=== PATIENT | female | born 1985 | race Caucasian/White ===

== ENCOUNTER 2021-06-19 07:08 | Outpatient (REF) | payer OTHER, SELFPAY ==
[2021-06-19 11:35] LABS: Appearance Urine CLEAR; Color Urine YELLOW; Glucose Urine UA NEG (NEG); Leukocyte Esterase Urine NEG (NEG); Nitrite Urine NEG (NEG); Specific Gravity - Urine 1.015 (1.005-1.025); Urine Blood NEG (NEG); Urine Ketones NEG (NEG); Urine Protein NEG (NEG-TRACE)
[2021-06-19 11:54] LABS: Alanine Aminotransferase 24 U/L (0-31); Albumin Level 4.1 g/dL (3.5-5.0); Alkaline Phosphatase 60 U/L (39-117); Anion Gap 12 (12-20); Aspartate Amino Transferase 17 U/L (5-31); Bilirubin Total 0.7 mg/dL (0.0-1.0); Blood Urea Nitrogen 9 mg/dL (9-16); Calcium 8.9 mg/dL (8.4-10.2); Carbon Dioxide 24 mmol/L (22-29); Chloride 106 mmol/L (96-108); Cholesterol 201 mg/dL; Estimated Glomerular Filt Rate > 60; Glucose Fasting 99 mg/dL (60-99); HDL Cholesterol 46 mg/dL; Hematocrit 40.7 % (37.0-47.0); Hemoglobin 13.8 g/dl (12.0-16.0); LDL Cholesterol Calculated 135 mg/dl; Mean Corpuscular HGB Conc 33.9 g/dl (31.0-35.0); Mean Corpuscular Volume 94.4 fL (80.0-98.0); Mean Platelet Volume 10.8 fL (9.4-12.3); Platelet Count 233 X10*3/uL (160-400); Potassium 4.7 mmol/L (3.3-5.1); Red Blood Count 4.31 X10*6/uL (4.20-5.50); Red Cell Distribution Width 11.8 % (11.0-16.0); Sodium 137 mmol/L (135-145); Total Protein 6.6 g/dL (6.5-8.0); Triglycerides 101 mg/dL; White Blood Count 10.9 X10*3/uL (4.8-10.8)
[2021-06-19 12:17] LABS: TSH reflex Free T4 0.95 uIU/mL (0.32-4.0)
== END 2021-06-19 07:09 | disposition home or self-care (01) ==
LOC: HO.WFDLDS 07:08
PROVIDERS: PCP Hospitalist; Visit Provider Hospitalist
DX: Z00.00 Encounter for general adult medical examination without abnormal findings (principal)
CPT/HCPCS: 36415; 80053; 80061; 81003; 84443; 85027

== ENCOUNTER 2022-11-25 14:37 | Outpatient (AMB) | payer OTHER, SELFPAY ==
--- NOTE | 2022-11-25 14:47 | A.OFFVIS_ITS ---
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 htn/afb Intake Note: NPV w/ EKG Commissioning Manager Required: No Accompanied by: Self / Same As Patient Allergies No Known Allergies Allergy (Verified 11/25/22 14:47) Medication List - Last Reconciled 11/25/22 by Thomas Ardon MD diltiazem HCl ER 120 mg PO DAILY HPI HPI Comments History of Present Illness Details Mckenna is here for consultation regarding atrial fibrillation. In June 2021, patient had been on vacation and it seems that she had alcohol consumption during that time. When she returned back from vacation, she states she went into atrial fibrillation. That led to hospitalization at [facility]. Initially, IV Cardizem was tried but subsequently, it seems that due to lack of response to medications she underwent synchronized cardioversion. Then put on short-term anticoagulation for a few weeks and nothing since that time. She has seen [facility] after that but would like to switch. Overall, she states that she is feeling fine. No cardiac symptoms at all. No other cardiac history in the past apart from a single episode of atrial fibrillation. She states she does have high blood pressure and diltiazem is for both atrial fibri llation as well as high blood pressure. Otherwise, there is a history of we can alcohol consumption on Fridays or Saturdays when she drinks about 5 beers or so. No major cardiac issues in family. Mother because of pulmonary embolism that apparently happened after back surgery. She was in her 60s. [facility] Medical History (Updated 11/25/22 @ 15:11 by Thomas Ardon MD) PAF (paroxysmal atrial fibrillation) Hypertension Family History (Updated 11/25/22 @ 15:10 by Thomas Ardon MD) Mother Hypertension Pulmonary embolism Father Hypertension Social History Household Members: Spouse Both parents involved: No Caregiver staying overnight: No Housing: House Alcohol intake: current Patient Tobacco Use Status: Never used Tobacco e-Cigarette/Vaping Use: Never Used Second Hand Smoke Exposure: No Substance Use Type: Marijuana service: No Current occupational status: employed Current occupation: Teacher at [employer] Cognitive needs: No Hearing needs: No Vision needs: No Review of Systems Const Denies chills, Denies daytime sleepiness, Denies fatigue, Denies fever(s), Denies frequent falls, Denies night sweats, Denies snoring, Denies weakness, Denies weight gain and Denies weight loss Eyes Denies loss of vision ENT Denies dizziness and Denies hearing loss Card Denies chest pain, Denies chest pain with activity, Denies syncope, Denies rapid heart rate, Denies edema, Denies claudication, Denies leg edema, Denies lightheadedness, Denies palpitations, Denies dyspnea, Denies dyspnea on exertion and Denies orthopnea Resp Denies cough, Denies excessive phlegm production, Denies dyspnea, Denies dyspnea on exertion, Denies snoring and Denies wheezing GI Denies abdominal pain, Denies hematochezia, Denies change in bowel habits, Denies change in stool character, Denies heartburn, Denies nausea and Denies vomiting Denies hematuria, Denies urinary frequency and Denies dysuria Musc Denies arthralgias, Denies muscle weakness, Denies numbness and Denies tingling Skin/Breast Denies nail changes and Denies rash Neuro Denies Abnormal speech present, Denies dizziness, Denies syncope, Denies frequent falls, Denies loss of vision, Denies memory loss, Denies numbness, Denies tingling and Denies weakness Psych Denies depression and Denies memory loss Endo Denies fatigue and Denies palpitations Aller/Immun Denies wheezing Physical Exam Vital Signs: Last Vital Signs BP 140/88 H 11/25/22 14:48 BMI result Body Mass Index 35.7 Const General: comfortable and no acute distress Orientation/consciousness: patient oriented x3 HEENT Other: Unremarkable Head: Yes normal to inspection Neck Neck: Yes normal visual inspection Chest Chest palpation & inspection: normal inspection of the chest Resp Auscultation: clear to auscultation bilaterally Cardio Palpation: normal PMI Heart sounds: S1 normal heart sound present, S2 normal heart sound present, no gallops, no murmurs and no rubs GI Palpation (GI): Soft to palpation Back/Spine/Pelvis Other: unremarkable Skin General skin exam: no rashes or lesions noted Neuro General: patient oriented x3 Speech: No Abnormal speech present Extrem General: Yes normal to inspection Psych Mental Status: mental status grossly normal Office Procedures EKG Details: EKG with sinus rhythm at 62/Min; no significant ST-T changes and otherwise unremarkable. [place] [address]-[id number], Complete Assessment & Plan Assessment & Plan (1) PAF (paroxysmal atrial fibrillation): Code(s): I48.0 - Paroxysmal atrial fibrillation Plan In her case, risk factors for atrial fibrillation are alcohol binge drinking as well as weight. Hence discussed specifically about both these issues. She understands. Needs to cut back on the alcohol and also lose weight. That will improve the long-term risk profile for atrial fibrillation as well as her overall health. Otherwise, continue diltiazem. Echocardiogram obtained from [facility] shows normal LVEF at 60-65% and otherwise unremarkable. Will request records from [facility]. Coding Level of Care Code New Pt Level 3 (63113) Diagnoses PAF (paroxysmal atrial fibrillation) I48.0 CPT Codes EKG - CPT: 00827-[id number], Complete ([id number])
[2022-11-25 14:48] VITALS: BP 140/88; BMI 35.7
== END 2022-11-25 15:20 | disposition home or self-care (01) ==
PROVIDERS: PCP Hospitalist; Referring Provider Hospitalist; Visit Provider Internal Medicine
DX: I48.0 Paroxysmal atrial fibrillation (principal)
CPT/HCPCS: 93010; 99203

== ENCOUNTER → 2022-11-25 14:37 | Outpatient (BNVA) | payer OTHER, SELFPAY | PROVIDERS: PCP Hospitalist; Referring Provider Hospitalist; Visit Provider Internal Medicine | DX: I48.0 Paroxysmal atrial fibrillation (principal); Z79.899 Other long term (current) drug therapy | CPT/HCPCS: 93005 ==

== ENCOUNTER 2023-04-14 14:37 | Outpatient (AMB) | payer OTHER, SELFPAY ==
--- NOTE | 2023-04-14 13:45 | MHC.PC.OV ---
Vital Signs 04/14/23 14:41 Height 5 ft Weight 183 lb 2 oz BMI 35.8 BP 138/72 Blood Pressure Location Rt radial Position Right Lateral Pulse 76 Pulse Source Auscultation Intake Visit Reasons: Transfer from [facility] due for physical exam Allergies No Known Allergies Allergy (Verified 04/14/23 14:42) Medication List - Last Reconciled 04/14/23 by JAYLEN Frederick diltiazem HCl ER 120 mg PO DAILY Tobacco use date assessed: 06/29/22 HPI HPI Comments History of Present Illness Details 37-year-old female with paroxysmal AFib Status post cardioversion May 2021, hypertension, eczema Echo 06/2021 shows normal left ventricular size, left ventricular wall thickness is upper normal, LV systolic function is normal. The left ventricular ejection fraction 60-65% there was no regional motion abnormalities. Normal diastolic dysfunction. The right ventricle is normal in size and function. * There is no mention of any dilation of the ascending aorta. Echo October 2021 with normal systolic function, normal diastolic function, normal atrial size and no significant valve disease. Mildly dilated ascending aorta measuring 4.1 cm. 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 Reports hx of skin cancer and cardiac issues. Presents today for annual physical. Eyes - wears contact and glasses; last eye exam 03/2022 Dentist - routine Skin - see above Sleeping good Diet - steady; stable weight. >>Needs annual echo surveillance -- last one 10/2021. >> Pap smear had appt in October; last pap 2021 WNL. >>Immunizations: Declines flu shot. Due for Tdap. Will get this today. Labs from 06/2021 reviewed w/ her today. Borderline HLD. Otherwise WNL No Vitamin D to date. [facility] Medical History PAF (paroxysmal atrial fibrillation) Hypertension Family History Mother Hypertension Pulmonary embolism Father Hypertension Social History Household Members: Spouse Both parents involved: No Caregiver staying overnight: No Housing: House Alcohol intake: current Patient Tobacco Use Status: Never used Tobacco e-Cigarette/Vaping Use: Never Used Second Hand Smoke Exposure: No Substance Use Type: Marijuana service: No Current occupational status: employed Current occupation: Teacher at [employer] Cognitive needs: No Hearing needs: No Vision needs: No Questionnaire PHQ-9 Over the last 2 weeks, how often have you been bothered by any of the following problems? 1. Little interest or pleasure in doing things: not at all 2. Feeling down, depressed, or hopeless: not at all 3. Trouble falling or staying asleep, or sleeping too much: not at all 4. Feeling tired or having little energy: not at all 5. Poor appetite or overeating: not at all 6. Feeling bad about yourself - or that you are a failure or have let yourself or your family down: not at all 7. Trouble concentrating on things, such as reading the newspaper or watching television: not at all 8. Moving or speaking so slowly that other people could have noticed. Or the opposite - being so fidgety or restless that you have been moving around a lot more than usual: not at all 9. Thoughts that you would be better off or of hurting yourself in some way: not at all Total score: 0 Depression Screening Interpretation: Negative Depression Screening Done: Yes 21874 - PHQ-9 Billing: Yes Source: Developed by Drs. Pete Sue, Hiwot Hopper, Lucas Aguilar and colleagues, with an educational lance from [email or web address]. Thrive Questionnaire I am a: Patient What is your living situation today?: I have a steady place to live Within the past 12 months, did the food you bought not last and you didn't have the money to get more?: Never true Within the past 12 months, did you worry whether your food would run out before you got money to buy more?: Never true Do you have trouble paying for medicines?: No Do you have trouble getting transportation to medical appointments?: No Do you have trouble paying your heating and electricity bill?: No Do you have trouble taking care of your child, family member or friend?: No Do you have trouble with day-to-day activities such as bathing, preparing meals, shopping, managing finances, etc.?: No Are you currently unemployed and looking for a job?: No Are you interested in more education?: No Currently or been in a relationship where the following occur: no concerns reported THRIVE Score: 0 AUDIT C Alcohol Use Questionnaire (AUDIT-C) 1. How often do you have a drink containing alcohol?: 2-3 times a week 2. How many drinks containing alcohol do you have on a typical day when you are drinking?: 3 or 4 3. How often do you have six or more drinks on one occasion?: Less than monthly Total Score: 5 Score Reviewed/Action Taken: Yes PETAR-7 AMB Questionnaire PETAR-7 Feeling nervous, anxious, or on edge: 0 = Not at all Not being able to stop or control worryin = Not at all Worrying too much about different things: 0 = Not at all Trouble relaxin = Not at all Being so restless that it is hard to sit still: 0 = Not at all Becoming easily annoyed or irritable: 0 = Not at all Feeling afraid as if something awful might happen: 0 = Not at all Total PETAR-7 score (0-4 normal; 5-9 mild; 10-14 moderate; 15-21 severe): 0 Source: Developed by Drs. Pete Sue, Hiwot Hopper, Lucas Aguilar and colleagues, with an educational lance from [email or web address]. PETAR-7 Assessment Billing PETAR-7 Assessment Tool: PETAR-7 Assessment 09232 Review of Systems Const Details: Constitutional: [Denies} fever. Skin: Denies rash. Eye: Denies eye pain. ENMT: Denies sore throat and nasal congestion. Respiratory: Denies shortness of breath and cough. Gastrointestinal: Denies nausea, vomiting or abdominal pain. Cardiovascular: Denies chest pain and syncope. Genitourinary: Denies dysuria. Musculoskeletal: Denies back pain and extremity pain. Neurologic: Denies headaches, confusion, and weakness. Psychiatric: Denies suicidal thoughts and substance abuse. Allergy/ Immunologic: Denies impaired immunity. Physical exam (Primary Care) Vital Signs: Last Vital Signs Pulse 76 04/14/23 14:41 BP 138/72 04/14/23 14:41 BMI result Body Mass Index 35.8 BMI Assessment/Plan discussion: High Tobacco/Smoking Status: Tobacco use Status Tobacco use date assessed 06/29/22 04/14/23 13:45 Patient Tobacco Use Status Never used Tobacco 04/14/23 13:45 e-Cigarette/Vaping Use Never Used 04/14/23 13:45 PHQ-9: PHQ-9 Score PHQ-9: Total score 0 04/14/23 15:16 Depression Screening Interpretation: Negative Currently or been in a relationship where the following occur: no concerns reported Const Other: General: Well developed, well nourished, in no acute distress. Appears stated age. Head: Normocephalic, atraumatic. Eyes: Pupils are equal, round and reactive to light and accommodation. Conjunctivae are clear. Vision grossly normal. Ears: TMs clear AU, EACS WNL Nose: Patent, without discharge. Mouth: There are no ulcers or lesions noted. No inflammation, no post nasal drip, no plaques nor exudates. Neck: Supple, no adenopathy or thyromegaly. Lungs: Clear to auscultation bilaterally. No rales, rhonchi or wheeze noted. Good air flow in all green. Heart: Regular rate and rhythm. No murmurs, click, rubs or gallops are noted. Abdomen: Bowel sounds present in all quadrants. The abdomen is soft, nontender, with no masses or organomegaly noted. No hernias are noted. Musculoskeletal: Joints are nontender, without swelling, redness, or effusions. Range of motion is observed to be normal. Pulses: Peripheral pulses are equal and palpable bilaterally. Extremities: No clubbing, cyanosis nor edema is noted. Neurologic: Gait and station normal. Cranial Nerves 2-12 intact. Motor strength grossly symmetrical and intact. No sensory loss. Balance normal. Skin: No rashes, ulcers, or lesions noted. Turgor is good. Skin color is good. Hair and nails are without abnormalities. Psych: Normal eye contact, affect and mood appropriate, and normal interactions. Patient is alert and appropriate to context. Extremities: No clubbing, cyanosis or edema. Immunizations Boostrix Tdap 2.5 Lf unit-8 mcg-5 Lf/0.5 mL intramuscular syringe Performing Provider: JAYLEN Frederick Performing Location: [facility] Administered by: Yvrose Restrepo RN on 04/14/23 15:19 Dose Route Admin Location Dispensed Lot Number Expiration Date [facility] Range Mounter 0.5 mL IM Right Deltoid 0.5 mL [id number] 02/17/25 95616-161-12 Communities for Cause VIS Given Date VIS Provided VIS Publication Date 04/14/23 Single Vaccine 20 Eligibility Eligibility Date Funding Source Not [facility] Eligible 04/14/23 Private Assessment and Plan Assessment & Plan (1) Normal physical exam: Code(s): Z00.00 - Encounter for general adult medical examination without abnormal findings (2) PAF (paroxysmal atrial fibrillation): Comment: Managed by [facility] annual visits , not on anti-coag as this only occurred 1 time Code(s): I48.0 - Paroxysmal atrial fibrillation (3) Hypertension: Comment: on cardizem ER QD, monitor at home and at goal <140/80 Code(s): I10 - Essential (primary) hypertension Qualifiers: Hypertension type: primary hypertension Qualified Code(s): I10 - Essential (primary) hypertension (4) Borderline hyperlipidemia: Code(s): E78.5 - Hyperlipidemia, unspecified (5) Mild dilation of ascending aorta: Comment: noted on echo October 2021 with normal systolic function, normal diastolic function, normal atrial size and no significant valve disease. Mildly dilated ascending aorta measuring 4.1 cm. Echo ordered today for surveillance Code(s): I77.810 - Thoracic aortic ectasia Orders: Orders Comprehensive [place]. Panel Fast Today E78.5 - Hyperlipidemia, unspecified, I10 - Essential (primary) hypertension, I48.0 - Paroxysmal atrial fibrillation, I77.819 - Aortic ectasia, unspecified site, Z00.00 - Encounter for general adult medical examination without abnormal findings Vitamin D 1,25 dihydroxy Today E78.5 - Hyperlipidemia, unspecified, I10 - Essential (primary) hypertension, I48.0 - Paroxysmal atrial fibrillation, I77.819 - Aortic ectasia, unspecified site, Z00.00 - Encounter for general adult medical examination without abnormal findings TDaP Immunization Today Z23 - Encounter for immunization CA echo transthoracic complete Today E78.5 - Hyperlipidemia, unspecified, I10 - Essential (primary) hypertension, I48.0 - Paroxysmal atrial fibrillation, I77.810 - Thoracic aortic ectasia, Z00.00 - Encounter for general adult medical examination without abnormal findings Lipid Panel Today E78.5 - Hyperlipidemia, unspecified, I10 - Essential (primary) hypertension, I48.0 - Paroxysmal atrial fibrillation, I77.819 - Aortic ectasia, unspecified site, Z00.00 - Encounter for general adult medical examination without abnormal findings Medications: Refilled diltiazem HCl ER 120 mg PO DAILY 90 caps 3RF I10 - Essential (primary) hypertension Review Flu Vaccine not done: patient reason Coding Level of Care Code Est Pt Prev Care 18-39y(00591) Diagnoses Normal physical exam Z00.00 PAF (paroxysmal atrial fibrillation) I48.0 Primary hypertension I10 Hypertension type: primary hypertension Borderline hyperlipidemia E78.5 Mild dilation of ascending aorta I77.810 Additional Codes PETAR-7 Assessment Billing - PETAR-7 Assessment Tool: PETAR-7 Assessment 17694 ([id number])
[2023-04-14 14:41] VITALS: BP 138/72; PULSE 76; BMI 35.8
== END 2023-04-14 15:18 | disposition home or self-care (01) ==
PROVIDERS: PCP Nurse Practitioner Family; Visit Provider Nurse Practitioner Family
DX: Z00.00 Encounter for general adult medical examination without abnormal findings (principal); I77.810 Thoracic aortic ectasia; I48.0 Paroxysmal atrial fibrillation; Z23 Encounter for immunization; I10 Essential (primary) hypertension; E78.5 Hyperlipidemia, unspecified
CPT/HCPCS: 90471; 90715; 99395

== ENCOUNTER → 2023-05-06 12:46 | Outpatient (REF) | payer OTHER, SELFPAY ==
--- NOTE | 2023-05-06 12:49 | CA_ITS ---
Transthoracic Echocardiogram Patient (Last, First, Middle): Mckenna Dumas, Gender: Female Date of : 1985 Age: 37 Procedure Date: 05/06/2023 Procedure Type: Transthoracic Echocardiogram Location: OP Height: 152.4 cm Weight: 83.01 kg BSA: 1.80 m2 Heart Rate: 73 bpm BP: 136 / 68 mmHg Communicable Disease Specialist: SB Referring MD: Keli Al [facility] Talent Recruiter: Luis Corea MD Symptoms: E78.5 - Hyperlipidemia, unspecified Study Quality: Adequate w contrast ECG Rhythm: Sinus Conclusions: - 1. Normal LV ejection fraction of 65-70% 2. Normal cardiac valvular Doppler 3. Normal RV systolic pressure 4. Mildly dilated ascending aorta at 4.2 cm 5. No gross pericardial effusion Findings Procedure Information Contrast agent, definity, is being given per protocol without apparent complications. Left Ventricle Normal left ventricular size, thickness, and systolic function. The visually estimated ejection fraction is between 65-70%. Spectral Doppler is indicative of a normal filling pattern. Right Ventricle Normal right ventricular cavity size and systolic function. Atria The left atrium is normal in size. Interatrial shunt cannot be excluded. The right atrium is normal in size. Aortic Valve The aortic valve structure and function is likely normal. There is no aortic valve stenosis. There is no aortic valve regurgitation. Mitral Valve Normal mitral valve structure and function. There is trace mitral valve regurgitation. There is no mitral valve stenosis. Pulmonic Valve The pulmonic valve was not well visualized. Tricuspid Valve Normal tricuspid valve structure. There is trace tricuspid valve regurgitation. The right ventricular systolic pressure is normal. The right ventricular systolic pressure is 23 mmHg. Normal right atrial pressure. There is no evidence of pulmonary hypertension. Great Vessels The pulmonary artery was not well visualized. There is mild dilatation of the ascending aorta measuring 4.20 cm. Venous The inferior vena cava is normal in size and collapses greater than 50% with inspiration. Pericardium/Pleural There is no evidence of pericardial effusion. Prior Study Comparison No prior study available for comparison. Measurements 2D Linear Measurements IVSd: 0.69 0.6-0.9/0.6-1.0 cm LVIDd: 4.91 3.9-5.3/4.2-5.9 cm LVIDd Index: 2.73 2.4-3.2/2.2-3.1 cm/m2 LVIDs: 3.40 2.0-3.6 cm LVPWd: 0.66 0.7-1.1 cm LA Diam: 3.00 2.7-3.8/3.0-4.0 cm LAIDs Index: 1.67 1.5-2.3 cm/m2 LV Mass: 131.90 67-162/88-224 g LV Mass Index: 73.28 43-95/49-115 g/m2 LVOT Diam: 2.00 3.0+(-)1.3 cm 2D Systolic Function EF 4C: 61.20 >55% EF 2C: 70.60 >55% EF BiP: 65.70 >55% Mitral Valve MV Pk E: 0.59 MV PK A: 0.49 MV Decel Time: 160.00 E/A: 1.20 E'Lateral: 10.30 E'Medial: 7.07 E/E' Med: 8.30 E/E' Lat: 5.70 PHT: 47.00 MVA PHT: 4.68 Decel [place]: 3.68 Aortic Valve AoV Pk Krunal: 1.55 AoV Mn Krunal: 1.04 AoV VTI: 0.28 AoV Pk Grad: 10.00 Aov Mn Grad: 5.00 JHOAN Cont.VTI: 2.00 LVOT LVOT Pk Krun[place]: 0.86 LVOT Mn Krunal: 0.62 LVOT VTI: 0.18 LVOT Pk Grad: 3.00 LVOT Mn Grad: 2.00 LVOT Diam: 2.00 LVOT Area: 3.14 Diastolic Function MV Pk E: 0.59 MV Pk A: 0.49 E/A: 1.20 E'Medial: 7.07 E/E' Med: 8.30 E' Laterial: 10.30 E/E' Lat: 5.70 Right Ventricle TAPSE (mm): 16.80 TVS' Krunal: 8.70 Tricuspid Valve TR Pk Krunal: 2.21 TR Pk Grad: 20.00 RA Press: 3.00 RVSP: 23.00 Great Vessels Aorta Sinus of Valsalva: 3.00 2.0-3.5 cm Ao Asc: 4.20 2.1-3.4 cm Ao Arch: 3.00 Ao Desc: 1.30 Pulmonary Valve PV Pk Krunal: 0.91 Peak PV Grad: 3.00 Updated in Other Vendor System with Status of Final Luis Corea MD electronically signed on 05/07/2023 11:50:16 AM with status of Final
== END ==
LOC: HO.CARD 12:46
PROVIDERS: Visit Provider Internal Medicine
DX: I48.0 Paroxysmal atrial fibrillation (principal); I10 Essential (primary) hypertension; E78.5 Hyperlipidemia, unspecified
CPT/HCPCS: 93306; Q9957

== ENCOUNTER → 2023-05-06 12:49 | Outpatient (BNV) | payer OTHER, SELFPAY | PROVIDERS: Visit Provider Internal Medicine Cardiovascular Disease | DX: I77.810 Thoracic aortic ectasia (principal); E78.5 Hyperlipidemia, unspecified | CPT/HCPCS: 93306 ==

== ENCOUNTER 2023-05-18 07:55 | Outpatient (REF) | payer OTHER, SELFPAY ==
[2023-05-18 14:01] LABS: Alanine Aminotransferase 24 U/L (0-31); Alkaline Phosphatase 52 U/L (39-117); Anion Gap 9 (12-20); Aspartate Amino Transferase 18 U/L (5-31); Bilirubin Total 0.7 mg/dL (0.0-1.0); Blood Urea Nitrogen 11 mg/dL (9-16); Calcium 8.9 mg/dL (8.4-10.2); Carbon Dioxide 26 mmol/L (22-29); Chloride 106 mmol/L (96-108); Cholesterol 159 mg/dL (<200); Estimated Glomerular Filt Rate > 60; Glucose Fasting 99 mg/dL (60-99); HDL Cholesterol 44 mg/dL (>40); LDL Cholesterol Calculated 84 mg/dL (<100); Potassium 4.4 mmol/L (3.3-5.1); Sodium 137 mmol/L (135-145); Total Protein 6.8 g/dL (6.5-8.0); Triglycerides 158 mg/dL (<150)
[2023-05-22 08:53] LABS: VITAMIN D (1,25 OH) D3 17 pg/mL; Vit D (1,25-Dihydroxy) Total 17 pg/mL (18-72); Vitamin D (1,25 OH) D2 <8 pg/mL
== END 2023-05-18 07:56 | disposition home or self-care (01) ==
LOC: HO.WFDLDS 07:55
PROVIDERS: Visit Provider Nurse Practitioner Family
DX: Z00.00 Encounter for general adult medical examination without abnormal findings (principal); I77.819 Aortic ectasia, unspecified site; I48.0 Paroxysmal atrial fibrillation; I10 Essential (primary) hypertension; E78.5 Hyperlipidemia, unspecified
CPT/HCPCS: 36415; 80053; 80061; 82652

== ENCOUNTER 2023-05-18 10:18 | Outpatient (AMB) | payer OTHER, SELFPAY ==
[2023-05-18 10:30] VITALS: BP 180/101; PULSE 94; RESP 13; TEMP 36.3; O2SAT 99; BMI 31.9
--- NOTE | 2023-05-18 10:30 | MHC.PC.OV ---
Vital Signs 05/18/23 10:30 05/18/23 11:00 05/18/23 12:30 Height 5 ft 4 in Weight 186 lb BMI 31.9 BP 180/101 H 220/110 H 170/110 H Blood Pressure Location Lt brachial Lt brachial Lt brachial Position Sitting Sitting Sitting Respiration 13 Pulse 94 Pulse Source Pulse Oximeter Temp 97.3 F Temp Source Temporal Artery Scan Pulse Oximetry (%) 99 Oxygen Delivery Method Room Air Intake Visit Reasons: Anxiety Intake Note: Patient reports she is here for a follow up for anxiety and it is, going, I definitely feel it. Patient reports she is not under a lot of stress right now. Early Childhood Education Instructor Required: No Accompanied by: Self / Same As Patient Allergies No Known Allergies Allergy (Verified 05/18/23 10:31) Medication List - Last Reconciled 05/18/23 by Keli Al, TIER LIFT OPERATOR- diltiazem HCl ER 120 mg PO DAILY Tobacco use date assessed: 06/29/22 HPI HPI Comments History of Present Illness Details 37-year-old female with paroxysmal AFib Status post cardioversion May 2021, hypertension, PETAR, ascending aorta dilation Echo 06/2021 shows normal left ventricular size, left ventricular wall thickness is upper normal, LV systolic function is normal. The left ventricular ejection fraction 60-65% there was no regional motion abnormalities. Normal diastolic dysfunction. The right ventricle is normal in size and function. There is no mention of any further dilation of the ascending aorta. Echo October 2021 with normal systolic function, normal diastolic function, normal atrial size and no significant valve disease. Mildly dilated ascending aorta measuring 4.1 cm., Specialist [facility] Cardiology Health Maintenance: Pap Vaccines Family history Mom of PE age 62 in age 2021 Brother of drug overdose 2021 Here today to discuss anxiety. Reports that she thinks that she has had severe anxiety right along however she has not told anybody. Reports that she feels a racing sensation of her heart and then become severely anxious. Does admit chest pain occurs sometimes during these racing heart episodes. She can not correlate any cause of these episodes. Thinks that they happen more at night. Drinks 1 cup of coffee per day in the morning. Does not use any other stimulants. She does smoke marijuana and was using this to help her anxiety however she stopped over the last 2 weeks as she found that it was not good in relation to her dilated aorta. She monitors her blood pressure at home and reports that and she is calm it is normal however when she is having these racing heart episodes it is elevated as it is today. The anxiety is affecting her ability to sleep she has not sleeping well at all. She is using Unisom to help which is helping a very little. She has not currently in counseling and is open to this at this point. She has not taking any medications for anxiety or depression at this time. denies back pain, abd pain, swelling in lower ext [facility] Medical History PAF (paroxysmal atrial fibrillation) Hypertension Family History Mother Hypertension Pulmonary embolism Father Hypertension Social History Household Members: Spouse Both parents involved: No Caregiver staying overnight: No Housing: House Alcohol intake: current Patient Tobacco Use Status: Never used Tobacco e-Cigarette/Vaping Use: Never Used Second Hand Smoke Exposure: No Substance Use Type: Marijuana service: No Current occupational status: employed Current occupation: Teacher at [employer] Cognitive needs: No Hearing needs: No Vision needs: No Questionnaire PHQ-9 Over the last 2 weeks, how often have you been bothered by any of the following problems? 1. Little interest or pleasure in doing things: not at all 2. Feeling down, depressed, or hopeless: several days 3. Trouble falling or staying asleep, or sleeping too much: nearly every day 4. Feeling tired or having little energy: several days 5. Poor appetite or overeating: not at all 6. Feeling bad about yourself - or that you are a failure or have let yourself or your family down: not at all 7. Trouble concentrating on things, such as reading the newspaper or watching television: not at all 8. Moving or speaking so slowly that other people could have noticed. Or the opposite - being so fidgety or restless that you have been moving around a lot more than usual: several days 9. Thoughts that you would be better off or of hurting yourself in some way: not at all Total score: 6 Depression Screening Interpretation: Positive Depression Screening Follow-up: Community Mental Health Worker F/U and Follow-up Visit Requested Depression Screening Done: Yes 51245 - PHQ-9 Billing: Yes Source: Developed by Drs. Pete Sue, Hiwot Hopper, Lucas Aguilar and colleagues, with an educational lance from [employer]. PETAR-7 AMB Questionnaire PETAR-7 Date PETAR - 7 assessed: 05/18/23 Feeling nervous, anxious, or on edge: 3 = Nearly every day Not being able to stop or control worryin = Nearly every day Worrying too much about different things: 3 = Nearly every day Trouble relaxin = Nearly every day Being so restless that it is hard to sit still: 3 = Nearly every day Becoming easily annoyed or irritable: 1 = Several days Feeling afraid as if something awful might happen: 3 = Nearly every day Total PETAR-7 score (0-4 normal; 5-9 mild; 10-14 moderate; 15-21 severe): 19 Source: Developed by Drs. Pete Sue, Hiwot Hopper, Lucas Aguilar and colleagues, with an educational lance from [employer]. PETAR-7 Assessment Billing PETAR-7 Assessment Tool: PETAR-7 Assessment 52933 Review of Systems Const All systems reviewed & are unremarkable except as noted in HPI and below Physical exam (Primary Care) Vital Signs: Last Vital Signs Temp 97.3 F 05/18/23 10:30 Pulse 94 05/18/23 10:30 Resp 13 05/18/23 10:30 BP 180/101 H 05/18/23 10:30 Pulse Ox 99 05/18/23 10:30 Oxygen Delivery Method Room Air 05/18/23 10:30 BMI result Body Mass Index 31.9 Tobacco/Smoking Status: Tobacco use Status Tobacco use date assessed 06/29/22 05/18/23 10:37 Patient Tobacco Use Status Never used Tobacco 05/18/23 10:37 e-Cigarette/Vaping Use Never Used 05/18/23 10:37 PHQ-9: PHQ-9 Score PHQ-9: Total score 6 05/18/23 11:21 Depression Screening Interpretation: Positive Depression Screening Follow-up: Community Mental Health Worker F/U and Follow-up Visit Requested Const Other: Awake alert PERRLA RRR LS CTAB No edema BLE Anxious, tearful, cooperative Office Procedures EKG Details: Normal Sinus Rhythm Normal ECG 06050-[id number], Complete Assessment and Plan Assessment & Plan (1) PETAR (generalized anxiety disorder): Comment: Profound anxiety. Consider starting medication however given her hypertension would like her to see Cardiology 1st; wonder if she would benefit from a beta-leobardo like propranolol ? We will schedule an appointment to follow up with her after she is Cardiology to discuss future medication management. Nurse navigation referral placed to set her up with a counselor. Code(s): F41.1 - Generalized anxiety disorder (2) PAF (paroxysmal atrial fibrillation): Comment: Managed by [facility] Cards annual visits , not on anti-coag as this only occurred 1 time Code(s): I48.0 - Paroxysmal atrial fibrillation (3) Hypertension: Comment: on cardizem ER QD, monitor at home and at goal <140/80. BP above goal today. EKG done and shows normal sinus rhythm. Call placed to [facility] Cardiology to discuss. No medications recommended or diagnostics at this time urgent office visit scheduled for at 12:45pm. The patient is aware of this appointment. I had encouraged her to monitor her blood pressure once in the morning and once at bedtime and to bring this log with her to the appointment with the respiratory tech. Code(s): I10 - Essential (primary) hypertension Qualifiers: Hypertension type: primary hypertension Qualified Code(s): I10 - Essential (primary) hypertension Plan This note is constructed using voice recognition software. While every effort has been made to ensure accuracy in slitter scorer, still errors may have been included Sometimes, these errors may affect the content or meaning of the given sentence . Total time spent caring for the patient today was 75 minutes. This includes time spent before the visit reviewing the chart, time spent during the visit, and time spent after the visit on documentation Orders: Orders AMB EKG-In Office Today R00.2 - Palpitations Referrals Nurse Navigator Referral F41.1 - Generalized anxiety disorder Patient Instructions: Mary Brumfield, [facility] [address] [address] Telehealth services available Make an [phone]: ask about FMLA at work appt with cards at 1245pm Coding Level of Care Code Est Pt Level 5 (36426) Diagnoses PETAR (generalized anxiety disorder) F41.1 PAF (paroxysmal atrial fibrillation) I48.0 Primary hypertension I10 Hypertension type: primary hypertension CPT Codes EKG - CPT: [id number], Complete ([id number]) Additional Codes PETAR-7 Assessment Billing - PETAR-7 Assessment Tool: PETAR-7 Assessment 38991 ([id number])
[2023-05-18 11:00] VITALS: BP 220/110
[2023-05-18 12:30] VITALS: BP 170/110
== END 2023-05-18 11:44 | disposition home or self-care (01) ==
PROVIDERS: Visit Provider Nurse Practitioner Family
DX: F41.1 Generalized anxiety disorder (principal); I48.0 Paroxysmal atrial fibrillation; I10 Essential (primary) hypertension
CPT/HCPCS: 93000; 96127; 99215

== ENCOUNTER 2023-05-20 13:48 | Outpatient (AMB) | payer OTHER, SELFPAY ==
[2023-05-20 13:59] VITALS: BP 128/86; PULSE 85; BMI 32.5
--- NOTE | 2023-05-20 13:59 | A.OFFVIS_ITS ---
Intake Vital Signs 05/20/23 13:59 Height 5 ft 4 in Weight 189 lb 6.033 oz BMI 32.5 BP 128/86 Blood Pressure Location Lt brachial Position Sitting Pulse 85 Intake Visit Reasons: follow up Intake Note: follow up Press Operator Required: No Accompanied by: Self / Same As Patient Allergies No Known Allergies Allergy (Verified 05/20/23 14:01) Medication List - Last Reconciled 05/20/23 by Thomas Ardon MD diltiazem HCl ER 120 mg PO BID HPI HPI Comments History of Present Illness Details Mckenna returns for follow-up. Recall, she was seen few months back regarding atrial fibrillation. In June 2021, patient had been on vacation and it seems that she had alcohol consumption during that time. When she returned back from vacation, she states she went into atrial fibrillation. That led to hospitalization at [facility]. Initially, IV Cardizem was tried but subsequently, it seems that due to lack of response to medications she underwent synchronized cardioversion. Then put on short-term anticoagulation for a few weeks and nothing since that time. The switched from [facility] cardiology. She also has high blood pressure. She gets frequent anxiety/panic episodes. Recently, she was in a lot of anxiety and hence the blood pressure is office was over 200 mm Hg. After that, it seems she is taking 2 tablets of diltiazem and she is also much, although she was tearful in the office. Any case, after reassurance she seems better. Today blood pressure is also much improved. No other specific cardiac symptoms. No other cardiac history in the past apart from a single episode of atrial fibrillation. Otherwise, there is a history of we can alcohol consumption on Fridays or Saturdays when she drinks about 3 beers or so. No major cardiac issues in family. Mother because of pulmonary embolism that apparently happened after back surgery. She was in her 60s. [facility] Medical History PAF (paroxysmal atrial fibrillation) Hypertension Family History Mother Hypertension Pulmonary embolism Father Hypertension Social History Household Members: Spouse Both parents involved: No Caregiver staying overnight: No Housing: House Alcohol intake: current Patient Tobacco Use Status: Never used Tobacco e-Cigarette/Vaping Use: Never Used Second Hand Smoke Exposure: No Substance Use Type: Marijuana service: No Current occupational status: employed Current occupation: Teacher at [employer] Cognitive needs: No Hearing needs: No Vision needs: No Review of Systems Const Denies weakness ENT Denies dizziness Card Denies chest pain, Denies chest pain with activity, Denies syncope, Denies rapid heart rate, Denies pedal edema, Denies edema, Denies leg edema, Denies lightheadedness, Denies palpitations, Denies dyspnea, Denies dyspnea on exertion and Denies orthopnea Resp Denies cough, Denies dyspnea and Denies dyspnea on exertion GI Denies hematochezia and Denies change in stool character Musc Denies abnormal gait, Denies muscle cramps, Denies muscle weakness, Denies numbness, Denies radiating pain into limb and Denies tingling Neuro Denies abnormal gait, Denies dizziness, Denies syncope, Denies numbness, Denies tingling and Denies weakness Endo Denies palpitations Physical Exam Vital Signs: Last Vital Signs Pulse 85 05/20/23 13:59 BP 128/86 05/20/23 13:59 BMI result Body Mass Index 32.5 Const General: comfortable and no acute distress Orientation/consciousness: patient oriented x3 HEENT Other: Unremarkable Head: Yes normal to inspection Neck Neck: Yes normal visual inspection Chest Chest palpation & inspection: normal inspection of the chest Resp Auscultation: clear to auscultation bilaterally Cardio Palpation: normal PMI Heart sounds: S1 normal heart sound present, S2 normal heart sound present, no gallops, no murmurs and no rubs GI Palpation (GI): Soft to palpation Back/Spine/Pelvis Other: unremarkable Skin General skin exam: no rashes or lesions noted Neuro General: patient oriented x3 Extrem General: Yes normal to inspection Psych Mental Status: mental status grossly normal Assessment & Plan Assessment & Plan (1) PAF (paroxysmal atrial fibrillation): Code(s): I48.0 - Paroxysmal atrial fibrillation Plan: Isolated episode in setting of alcohol excess. She is on diltiazem. Not on anticoagulation. No recurrence. (2) Hypertension: Code(s): I10 - Essential (primary) hypertension Qualifiers: Hypertension type: primary hypertension Qualified Code(s): I10 - Essential (primary) hypertension Plan: Seems pressure was quite high few days back in PCP office. She believes she had a panic attack. Even today in the office she is crying. Reassured her as much. Any case blood pressure actually seems in the normal range. (3) Mild dilation of ascending aorta: Code(s): I77.810 - Thoracic aortic ectasia Plan: In the recent echocardiogram, ascending aortic size 4.2 cm. This is similar to a study from her prior ruby on rails engineer in 2021. However, there is another study from [facility] that had a smaller dimension at 3.2cm-?accuracy. We will recheck in 6 months. Specifically discussed pathophysiology of ascending aortic dilatation, consequences, follow-up extra. Also discussed impact of high blood pressure on aortic size. We also discussed about family screening. Orders: Orders CA echo limited 6 Months I77.810 - Thoracic aortic ectasia Coding Level of Care Code Est Pt Level 4 (62644) Diagnoses PAF (paroxysmal atrial fibrillation) I48.0 Primary hypertension I10 Hypertension type: primary hypertension Mild dilation of ascending aorta I77.810
== END 2023-05-20 14:22 | disposition home or self-care (01) ==
PROVIDERS: Visit Provider Internal Medicine
DX: I48.0 Paroxysmal atrial fibrillation (principal); I10 Essential (primary) hypertension; I77.810 Thoracic aortic ectasia
CPT/HCPCS: 99214

== ENCOUNTER → 2023-05-20 13:48 | Outpatient (BNVA) | payer OTHER, SELFPAY | PROVIDERS: Visit Provider Internal Medicine ==

== ENCOUNTER 2023-05-26 11:19 | Outpatient (AMB) | payer OTHER, SELFPAY ==
[2023-05-26 11:20] VITALS: BP 140/98; PULSE 71; O2SAT 98; BMI 31.4
--- NOTE | 2023-05-26 11:20 | MHC.PC.OV ---
Vital Signs 05/26/23 11:20 05/26/23 12:09 Height 5 ft 4 in Weight 183 lb 0.3 oz BMI 31.4 BP 140/98 H 144/88 H Blood Pressure Location Lt brachial Lt brachial Position Sitting Sitting Pulse 71 Pulse Source Pulse Oximeter Pulse Oximetry (%) 98 Oxygen Delivery Method Room Air Intake Visit Reasons: fu HTN and anxiety appt Intake Note: Patient is here to follow up on HTN and anxiety Enterprise Cloud Architect Required: No Allergies No Known Allergies Allergy (Verified 05/26/23 11:21) Medication List - Last Reconciled 05/26/23 by Keli Al, HEALTH UNIT SUPERVISOR- cholecalciferol (vitamin D3) 50 mcg PO DAILY diltiazem HCl ER 120 mg PO BID Tobacco use date assessed: 05/26/23 Dental Screening Dental Screen Date: 05/26/23 HPI HPI Comments History of Present Illness Details 37-year-old female with paroxysmal AFib Status post cardioversion May 2021, hypertension Echo 06/2021 shows normal left ventricular size, left ventricular wall thickness is upper normal, LV systolic function is normal. The left ventricular ejection fraction 60-65% there was no regional motion abnormalities. Normal diastolic dysfunction. The right ventricle is normal in size and function. There is no mention of any further dilation of the ascending aorta. Echo October 2021 with normal systolic function, normal diastolic function, normal atrial size and no significant valve disease. Mildly dilated ascending aorta measuring 4.1 cm. Echo 05/06/23 Conclusions: - 1. Normal LV ejection fraction of 65-70% 2. Normal cardiac valvular Doppler 3. Normal RV systolic pressure 4. Mildly dilated ascending aorta at 4.2 cm 5. No gross pericardial effusion Specialist [facility] Cardiology Repeat echo 10/2023 OV to follow Here today to discuss treatment of her anxiety. Anxiety is exacerbated by her health. Consult cardiology last week reviewed. No change in her treatment. She is taking Cardizem 120 mg twice per day now to control her hypertension with improved results. She continues to feel anxious. Reports episodes of panic. That occur when she has not occupied. Worse at night. Continues to work on getting a counselor. [facility] Medical History PAF (paroxysmal atrial fibrillation) Hypertension Family History Mother Hypertension Pulmonary embolism Father Hypertension Social History Household Members: Spouse Both parents involved: No Caregiver staying overnight: No Housing: House Alcohol intake: current Patient Tobacco Use Status: Never used Tobacco e-Cigarette/Vaping Use: Never Used Second Hand Smoke Exposure: No Substance Use Type: Marijuana service: No Current occupational status: employed Current occupation: Teacher at [employer] Cognitive needs: No Hearing needs: No Vision needs: No Questionnaire PHQ-9 Over the last 2 weeks, how often have you been bothered by any of the following problems? 1. Little interest or pleasure in doing things: not at all 2. Feeling down, depressed, or hopeless: several days 3. Trouble falling or staying asleep, or sleeping too much: nearly every day 4. Feeling tired or having little energy: several days 5. Poor appetite or overeating: not at all 6. Feeling bad about yourself - or that you are a failure or have let yourself or your family down: not at all 7. Trouble concentrating on things, such as reading the newspaper or watching television: not at all 8. Moving or speaking so slowly that other people could have noticed. Or the opposite - being so fidgety or restless that you have been moving around a lot more than usual: several days 9. Thoughts that you would be better off or of hurting yourself in some way: not at all Total score: 6 Depression Screening Interpretation: Positive Depression Screening Follow-up: Community Mental Health Worker F/U and Follow-up Visit Requested Depression Screening Done: Yes 17741 - PHQ-9 Billing: Yes Source: Developed by Drs. Pete Sue, Hiwot Hopper, Lucas Aguilar and colleagues, with an educational lance from [employer]. AUDIT C Alcohol Use Questionnaire (AUDIT-C) 1. How often do you have a drink containing alcohol?: 2-3 times a week 2. How many drinks containing alcohol do you have on a typical day when you are drinking?: 3 or 4 3. How often do you have six or more drinks on one occasion?: Less than monthly Total Score: 5 Score Reviewed/Action Taken: Yes PETAR-7 AMB Questionnaire PETAR-7 Date PETAR - 7 assessed: 03/05/24 Feeling nervous, anxious, or on edge: 3 = Nearly every day Not being able to stop or control worryin = Nearly every day Worrying too much about different things: 3 = Nearly every day Trouble relaxin = Nearly every day Being so restless that it is hard to sit still: 3 = Nearly every day Becoming easily annoyed or irritable: 1 = Several days Feeling afraid as if something awful might happen: 3 = Nearly every day Total PETAR-7 score (0-4 normal; 5-9 mild; 10-14 moderate; 15-21 severe): 19 Source: Developed by Drs. Pete Sue, Hiwot Hopper, Lucas Aguilar and colleagues, with an educational lance from [employer]. PETAR-7 Assessment Billing PETAR-7 Assessment Tool: PETAR-7 Assessment 08259 Physical exam (Primary Care) Vital Signs: Last Vital Signs Pulse 71 05/26/23 11:20 BP 140/98 H 05/26/23 11:20 Pulse Ox 98 05/26/23 11:20 Oxygen Delivery Method Room Air 05/26/23 11:20 BMI result Body Mass Index 31.4 Tobacco/Smoking Status: Tobacco use Status Tobacco use date assessed 05/26/23 05/26/23 11:22 Patient Tobacco Use Status Never used Tobacco 05/26/23 11:22 e-Cigarette/Vaping Use Never Used 05/26/23 11:22 PHQ-9: PHQ-9 Score PHQ-9: Total score 6 05/26/23 11:51 Depression Screening Interpretation: Positive Depression Screening Follow-up: Community Mental Health Worker F/U and Follow-up Visit Requested Const Other: Awake alert PERRLA RRR LS CTAB No edema BLE Anxious, tearful, cooperative Assessment and Plan Assessment & Plan (1) PETAR (generalized anxiety disorder): Comment: Profound anxiety. Plan: Start escitalopram 5 mg p.o. daily. Take in the morning. Follow up in 6 weeks. Titrate to effect. She is actively looking for a counselor. Code(s): F41.1 - Generalized anxiety disorder (2) Mild dilation of ascending aorta: Comment: Echo 06/2021 shows normal left ventricular size, left ventricular wall thickness is upper normal, LV systolic function is normal. The left ventricular ejection fraction 60-65% there was no regional motion abnormalities. Normal diastolic dysfunction. The right ventricle is normal in size and function. There is no mention of any further dilation of the ascending aorta. Echo October 2021 with normal systolic function, normal diastolic function, normal atrial size and no significant valve disease. Mildly dilated ascending aorta measuring 4.1 cm. Echo 05/06/23 Conclusions: - 1. Normal LV ejection fraction of 65-70% 2. Normal cardiac valvular Doppler 3. Normal RV systolic pressure 4. Mildly dilated ascending aorta at 4.2 cm 5. No gross pericardial effusion Managed by [facility] Cardiology. Repeat echocardiogram October 2023 Code(s): I77.810 - Thoracic aortic ectasia (3) Hypertension: Comment: Improved but remains above goal on Cardizem 120 mg p.o. b.i.d.. Continue to follow. Code(s): I10 - Essential (primary) hypertension Qualifiers: Hypertension type: primary hypertension Qualified Code(s): I10 - Essential (primary) hypertension Plan This note is constructed using voice recognition software. While every effort has been made to ensure accuracy in taxation consultant, still errors may have been included Sometimes, these errors may affect the content or meaning of the given sentence . Total time spent caring for the patient today was 45 minutes. This includes time spent before the visit reviewing the chart, time spent during the visit, and time spent after the visit on documentation Medications: New escitalopram oxalate 5 mg PO DAILY 30 tabs 1RF diltiazem HCl ER 120 mg PO BID 60 caps 3RF I10 - Essential (primary) hypertension Patient Instructions: Return to the office in 6 weeks to follow-up on escitalopram and hypertension Coding Level of Care Code Est Pt Level 5 (87110) Diagnoses PETAR (generalized anxiety disorder) F41.1 Mild dilation of ascending aorta I77.810 Primary hypertension I10 Hypertension type: primary hypertension Additional Codes PETAR-7 Assessment Billing - PETAR-7 Assessment Tool: PETAR-7 Assessment 29138 ([id number])
[2023-05-26 12:09] VITALS: BP 144/88
== END 2023-05-26 11:53 | disposition home or self-care (01) ==
PROVIDERS: PCP Nurse Practitioner Family; Visit Provider Nurse Practitioner Family
DX: F41.1 Generalized anxiety disorder (principal); I77.810 Thoracic aortic ectasia; I10 Essential (primary) hypertension
CPT/HCPCS: 96127; 99215

== ENCOUNTER 2023-07-07 15:01 | Outpatient (AMB) | payer OTHER, SELFPAY ==
[2023-07-07 15:16] VITALS: BP 155/94; PULSE 76; RESP 13; O2SAT 98; BMI 32.8
--- NOTE | 2023-07-07 15:16 | A.OFFPC_ITS ---
Vital Signs 07/07/23 15:16 07/07/23 15:39 Height 5 ft 4 in Weight 191 lb BMI 32.8 BP 155/94 H 146/80 H Blood Pressure Location Rt brachial Lt brachial Position Sitting Sitting Respiration 13 Pulse 76 Pulse Source Pulse Oximeter Pulse Oximetry (%) 98 Oxygen Delivery Method Room Air Intake Visit Reasons: 6 wk follow up anxiety Intake Note: Patient is here to follow up for anxiety. Patient reports no questions or concerns. 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 Accompanied by: Self / Same As Patient Allergies No Known Allergies Allergy (Verified 07/07/23 15:35) Medication List - Last Reconciled 07/07/23 by Keli Al, TENTER FRAME OPERATOR- cholecalciferol (vitamin D3) 50 mcg PO DAILY diltiazem HCl ER 120 mg PO BID escitalopram oxalate 15 mg (1.5 x 10 mg) PO DAILY Tobacco use date assessed: 05/26/23 Dental Screening Dental Screen Date: 05/26/23 HPI HPI Comments History of Present Illness Details 37-year-old female with paroxysmal AFib Status post cardioversion May 2021, hypertension, PETAR Echo 06/2021 shows normal left ventricular size, left ventricular wall thickness is upper normal, LV systolic function is normal. The left ventricular ejection fraction 60-65% there was no regional motion abnormalities. Normal diastolic dysfunction. The right ventricle is normal in size and function. There is no mention of any further dilation of the ascending aorta. Echo October 2021 with normal systolic function, normal diastolic function, normal atrial size and no significant valve disease. Mildly dilated ascending aorta measuring 4.1 cm. Echo 05/06/23 Conclusions: - 1. Normal LV ejection fraction of 65-7 0% 2. Normal cardiac valvular Doppler 3. Normal RV systolic pressure 4. Mildly dilated ascending aorta at 4.2 cm 5. No gross pericardial effusion Specialist [facility] Cardiology Repeat echo 10/2023 OV to follow Here today 6 week f/u on Anxiety Tolerant and compliant w/ lexapro 10mg QD Taking in the AM. Not feeling anxious in the morning or at night anymore Able to sleep now No longer feeling anxiety in chest or palpitations Has intake w/ counselor with [facility] on Wednesday. Has not been monitoring BP at home. Has not felt the need. Denies cardiac complaints. [facility] Medical History PAF (paroxysmal atrial fibrillation) Hypertension Family History Mother Hypertension Pulmonary embolism Father Hypertension Social History Household Members: Spouse Both parents involved: No Caregiver staying overnight: No Housing: House Alcohol intake: current Patient Tobacco Use Status: Never used Tobacco e-Cigarette/Vaping Use: Never Used Second Hand Smoke Exposure: No Substance Use Type: Marijuana service: No Current occupational status: employed Current occupation: Teacher at [employer] Cognitive needs: No Hearing needs: No Vision needs: No Questionnaire PETAR-7 AMB Questionnaire PETAR-7 Date PETAR - 7 assessed: 05/18/23 Source: Developed by Drs. Pete Sue, iHwot Hopper, Lucas Aguilar and colleagues, with an educational lance from [employer]. Review of Systems Const All systems reviewed & are unremarkable except as noted in HPI and below Physical exam (Primary Care) Tobacco/Smoking Status: Tobacco use Status Tobacco use date assessed 05/26/23 05/26/23 11:22 Patient Tobacco Use Status Never used Tobacco 05/26/23 11:22 e-Cigarette/Vaping Use Never Used 05/26/23 11:22 Const Other: awake alert RRR LS CTAB Smiling, not anxious, no crying! Looks so much calmer than previous visits. No edema BLE Assessment and Plan Assessment & Plan (1) PETAR (generalized anxiety disorder): Comment: Profound anxiety improved w/ lexapro 10mg QD; however i think there is room for improvement. Plan: Increase lexapro from 10mg QD to 15 mg po QD Has appt w/ counselor at [facility] scheduled - intake soon FU in 6 weeks to assess. Sooner PRN Code(s): F41.1 - Generalized anxiety disorder (2) Hypertension: Comment: Improved but remains above goal on Cardizem 120 mg p.o. b.i.d.. Continue to follow. Code(s): I10 - Essential (primary) hypertension Qualifiers: Hypertension type: primary hypertension Qualified Code(s): I10 - Essential (primary) hypertension Medications: Changed From escitalopram oxalate 10 mg PO DAILY 30 tabs 1RF To escitalopram oxalate 15 mg (1.5 x 10 mg) PO DAILY 45 tabs 1RF Patient Instructions: RTO IN 6 WEEKS TO F/U ON ANXIETY AFTER INCREASE IN LEXAPRO FROM 10MG TO 15 MG SOONER NEEDED Coding Level of Care Code Est Pt Level 4 (26465) Diagnoses PETAR (generalized anxiety disorder) F41.1 Primary hypertension I10 Hypertension type: primary hypertension
[2023-07-07 15:39] VITALS: BP 146/80
== END 2023-07-07 15:47 | disposition home or self-care (01) ==
PROVIDERS: PCP Nurse Practitioner Family; Visit Provider Nurse Practitioner Family
DX: F41.1 Generalized anxiety disorder (principal); I10 Essential (primary) hypertension
CPT/HCPCS: 99214

== ENCOUNTER 2023-08-18 16:29 | Outpatient (AMB) | payer OTHER, SELFPAY ==
--- NOTE | 2023-08-18 16:23 | MHC.PC.OV ---
Intake Visit Reasons: 6 wk follow up anxiety Allergies No Known Allergies Allergy (Verified 07/07/23 15:35) Medication List - Last Reconciled 08/18/23 by Keli Al, [facility] cholecalciferol (vitamin D3) 50 mcg PO DAILY diltiazem HCl ER 120 mg PO BID escitalopram oxalate 15 mg (1.5 x 10 mg) PO DAILY Tobacco use date assessed: 05/26/23 Dental Screening Dental Screen Date: 05/26/23 HPI HPI Comments History of Present Illness Details Telehealth visit for fu PETAR: 6 week fu PETAR - lexapro increased from 10 mg to 15mg at last visit since this time, overall feels well a few mornings feeling anxious denies any side effects does have some low energy but cannot correlate to meds or heat/lack of air conditioning & not mood or s/e sleeping great in regards to counseling, had intake first appt w/ therapist on Wednesday Denies any cardiac sx. Not checking BP at home Plan: Increase lexapro from 15mg to 20mg FU in 6 weeks, sooner PRN PFSH Medical History PAF (paroxysmal atrial fibrillation) Hypertension Family History Mother Hypertension Pulmonary embolism Father Hypertension Social History Household Members: Spouse Both parents involved: No Caregiver staying overnight: No Housing: House Alcohol intake: current Patient Tobacco Use Status: Never used Tobacco e-Cigarette/Vaping Use: Never Used Second Hand Smoke Exposure: No Substance Use Type: Marijuana service: No Current occupational status: employed Current occupation: Teacher at [employer] Cognitive needs: No Hearing needs: No Vision needs: No Questionnaire PETAR-7 AMB Questionnaire PETAR-7 Date PETAR - 7 assessed: 05/18/23 Source: Developed by Drs. Pete Sue, Hiwot Hopper, Lucas Aguilar and colleagues, with an educational lance from [employer]. Physical exam (Primary Care) Tobacco/Smoking Status: Tobacco use Status Tobacco use date assessed 05/26/23 07/07/23 15:16 Patient Tobacco Use Status Never used Tobacco 07/07/23 15:16 e-Cigarette/Vaping Use Never Used 07/07/23 15:16 Telehealth Telehealth Telehealth Platform: Telephone Location of provider rendering services: practice address Location of patient: address on file Patient Identification confirmed using: Name, : Yes Telehealth method: voice only Patient verbally consented to treatment: Yes Patient verbally consented to billing insurance company: Yes Patient informed of any privacy concerns related to visit: Yes Minutes spent on Phone/Video with Pt.: 6 Assessment and Plan Assessment & Plan (1) PETAR (generalized anxiety disorder): Code(s): F41.1 - Generalized anxiety disorder Medications: New escitalopram oxalate (Lexapro) 20 mg PO DAILY 30 tabs 1RF Patient Instructions: RTO 6 WEEKS FOR FU (TELEHEALTH [place]) Coding Level of Care Code Tele Est Pt Level 1 (59014) Diagnoses PETAR (generalized anxiety disorder) F41.1
== END 2023-08-18 16:31 | disposition home or self-care (01) ==
LOC: HO.HMGFM 16:29
PROVIDERS: PCP Nurse Practitioner Family; Visit Provider Nurse Practitioner Family
DX: F41.1 Generalized anxiety disorder (principal)
CPT/HCPCS: 99212

== ENCOUNTER 2023-09-22 15:14 | Outpatient (AMB) | payer OTHER, SELFPAY ==
--- NOTE | 2023-09-22 15:20 | MHC.PC.OV ---
Vital Signs 09/22/23 15:26 09/22/23 15:37 09/22/23 15:52 Weight 193 lb 8 oz BP 142/98 H 137/80 144/88 H Blood Pressure Location Lt brachial Lt brachial Position Sitting Sitting Temp 97.8 F Temp Source Temporal Artery Scan Pulse Oximetry (%) 98 Oxygen Delivery Method Room Air Intake Visit Reasons: HTN, afib Intake Note: patient here for follow up. 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 Is last menstrual period known: Yes Last menstrual period: 08/22/23 Post menopausal: No Patient : No Allergies No Known Allergies Allergy (Verified 09/22/23 15:34) Medication List - Last Reconciled 09/22/23 by Keli Al, STORAGE SOLUTIONS ARCHITECT- cholecalciferol (vitamin D3) 50 mcg PO DAILY diltiazem HCl ER 120 mg PO BID escitalopram oxalate (Lexapro) 20 mg PO DAILY Tobacco use date assessed: 05/26/23 Dental Screening Dental Screen Date: 05/26/23 HPI HPI Comments History of Present Illness Details 37-year-old female with paroxysmal AFib Status post cardioversion May 2021, hypertension, PETAR Echo 06/2021 shows normal left ventricular size, left ventricular wall thickness is upper normal, LV systolic function is normal. The left ventricular ejection fraction 60-65% there was no regional motion abnormalities. Normal diastolic dysfunction. The right ventricle is normal in size and function. There is no mention of any further dilation of the ascending aorta. Echo October 2021 with normal systolic function, normal diastolic function, normal atrial size and no significant valve disease. Mildly dilated ascending aorta measuring 4.1 cm. Echo 05/06/23 Conclusions: - 1. Normal LV ejection fraction of 65-70% 2. Normal cardiac valvular Doppler 3. Normal RV systolic pressure 4. Mildly dilated ascending aorta at 4.2 cm 5. No gross pericardial effusion Specialist [facility] Cardiology Repeat echo 10/2023 OV to follow Here today for routine fu HTN & PETAR Since last OV she has been maintained on Lexapro 20 mg daily. She reports that her anxiety symptoms are very well controlled. She no longer has any physical symptoms associated with her anxiety. She reports only nervousness at times such as starting a new job @ [employer] in [place]. Otherwise she denies any breakthrough anxiety symptoms. She remains active with a counselor. She has had 3 sessions to date. Working with [employer]. In regards to her hypertension she does not monitor her blood pressure routinely at home anymore as this has caused her a great deal of anxiety. Her blood pressure today is within normal limits for her. She continues to take the diltiazem 120 mg twice per day. She denies any chest pain, headache, visual disturbances, swelling in her lower extremities. She has not echocardiogram scheduled in October with an office visit with the guest experience manager to follow. Exam: Awake alert, pleasant, NAD PERRLA RRR LS CTAB No edema BLE Mood and affect appropriate. Very cheerful and engaging. Plan Continue Lexapro 20 mg daily. Refill sent today. Continue diltiazem 120 mg p.o. b.i.d., refill sent today. Continue follow up with Cardiology as scheduled Return to office in January for routine follow up, sooner as needed. [facility] Medical History (Updated 09/22/23 @ 15:52 by Keli Al [facility]) Afib PAF (paroxysmal atrial fibrillation) Hypertension Family History Mother Hypertension Pulmonary embolism Father Hypertension Social History Household Members: Spouse Both parents involved: No Caregiver staying overnight: No Housing: House Alcohol intake: current Patient Tobacco Use Status: Never used Tobacco e-Cigarette/Vaping Use: Never Used Second Hand Smoke Exposure: No Substance Use Type: Marijuana service: No Current occupational status: employed Current occupation: Teacher at [employer] Cognitive needs: No Hearing needs: No Vision needs: No Female Reproductive History Menstrual Date of last menstrual period: 08/22/23 Questionnaire PHQ-9 Over the last 2 weeks, how often have you been bothered by any of the following problems? 1. Little interest or pleasure in doing things: not at all 2. Feeling down, depressed, or hopeless: not at all 3. Trouble falling or staying asleep, or sleeping too much: several days 4. Feeling tired or having little energy: not at all 5. Poor appetite or overeating: not at all 6. Feeling bad about yourself - or that you are a failure or have let yourself or your family down: not at all 7. Trouble concentrating on things, such as reading the newspaper or watching television: not at all 8. Moving or speaking so slowly that other people could have noticed. Or the opposite - being so fidgety or restless that you have been moving around a lot more than usual: several days 9. Thoughts that you would be better off or of hurting yourself in some way: not at all Total score: 2 70729 - PHQ-9 Billing: Yes Source: Developed by Drs. Pete Sue, Lucas Bonner and colleagues, with an educational lance from [employer]). PETAR-7 AMB Questionnaire PETAR-7 Date PETAR - 7 assessed: 09/22/23 Feeling nervous, anxious, or on edge: 0 = Not at all Not being able to stop or control worryin = Not at all Worrying too much about different things: 0 = Not at all Trouble relaxin = Several days Being so restless that it is hard to sit still: 1 = Several days Becoming easily annoyed or irritable: 0 = Not at all Feeling afraid as if something awful might happen: 0 = Not at all Total PETAR-7 score (0-4 normal; 5-9 mild; 10-14 moderate; 15-21 severe): 2 Source: Developed by Drs. Pete Sue, Hiwot Hopper, Lucas Aguilar and colleagues, with an educational lance from [employer]). PETAR-7 Assessment Billing PETAR-7 Assessment Tool: PETAR-7 Assessment 22548 Physical exam (Primary Care) Vital Signs: Last Vital Signs Temp 97.8 F 09/22/23 15:26 BP 142/98 H 09/22/23 15:26 Pulse Ox 98 09/22/23 15:26 Oxygen Delivery Method Room Air 09/22/23 15:26 Tobacco/Smoking Status: Tobacco use Status Tobacco use date assessed 05/26/23 09/22/23 15:23 Patient Tobacco Use Status Never used Tobacco 09/22/23 15:23 e-Cigarette/Vaping Use Never Used 09/22/23 15:23 PHQ-9: PHQ-9 Score PHQ-9: Total score 2 09/22/23 15:31 Assessment and Plan Assessment & Plan (1) PETAR (generalized anxiety disorder): Code(s): F41.1 - Generalized anxiety disorder (2) Hypertension: Comment: Improved but remains above goal on Cardizem 120 mg p.o. b.i.d.. Continue to follow. Code(s): I10 - Essential (primary) hypertension Qualifiers: Hypertension type: primary hypertension Qualified Code(s): I10 - Essential (primary) hypertension Plan: This note is constructed using voice recognition software. While every effort has been made to ensure accuracy in overhead line worker, still errors may have been included Sometimes, these errors may affect the content or meaning of the given sentence . Medications: Changed From diltiazem HCl ER 120 mg PO BID 60 caps 3RF I10 - Essential (primary) hypertension To diltiazem HCl ER 120 mg PO BID 90 days 180 caps 3RF I10 - Essential (primary) hypertension Refilled escitalopram oxalate (Lexapro) 20 mg PO DAILY 90 tabs 1RF Coding Level of Care Code Est Pt Level 3 (03407) Complex EM visit Add On G2211 Diagnoses PETAR (generalized anxiety disorder) F41.1 Primary hypertension I10 Hypertension type: primary hypertension Additional Codes PETAR-7 Assessment Billing - PETAR-7 Assessment Tool: PETAR-7 Assessment 31402 ([id number])
[2023-09-22 15:26] VITALS: BP 142/98; TEMP 36.6; O2SAT 98
[2023-09-22 15:37] VITALS: BP 137/80
[2023-09-22 15:52] VITALS: BP 144/88
== END 2023-09-22 15:47 | disposition home or self-care (01) ==
PROVIDERS: PCP Nurse Practitioner Family; Visit Provider Nurse Practitioner Family
DX: I10 Essential (primary) hypertension (principal); F41.1 Generalized anxiety disorder
CPT/HCPCS: 99213

== ENCOUNTER → 2023-11-16 14:41 | Outpatient (REF) | payer OTHER, SELFPAY ==
--- NOTE | 2023-11-16 14:44 | CA_ITS ---
Transthoracic Echocardiogram Patient (Last, First, Middle): Mckenna Dumas, Gender: Female Date of : 1985 Age: 38 Procedure Date: 11/16/2023 Procedure Type: Transthoracic Echocardiogram Location: OP Height: 152.4 cm Weight: 83.92 kg BSA: 1.81 m2 Heart Rate: bpm BP: 118 / 60 mmHg Pharmacy General Manager: Referring MD: Thomas Ardon MD Symptoms: I77.810 - Thoracic aortic ectasia Study Quality: Adequate ECG Rhythm: Sinus Conclusions: - The left ventricular systolic function is normal. The visually estimated ejection fraction is between 55-60%. - There is mild dilatation of the ascending aorta measuring 4.10 cm. Findings Left Ventricle Normal left ventricular cavity size. The left ventricular systolic function is normal. The visually estimated ejection fraction is between 55-60%. Aortic Valve There is no aortic valve regurgitation. Great Vessels The aortic arch is normal in size. There is mild dilatation of the ascending aorta measuring 4.10 cm. Venous The inferior vena cava is normal in size and collapses greater than 50% with inspiration. Prior Study Comparison No significant change compared to prior study dated: 05/06/2023. Measurements 2D Linear Measurements IVSd: 1.03 0.6-0.9/0.6-1.0 cm LVIDd: 4.01 3.9-5.3/4.2-5.9 cm LVIDd Index: 2.22 2.4-3.2/2.2-3.1 cm/m2 LVIDs: 2.59 2.0-3.6 cm LVPWd: 1.01 0.7-1.1 cm LV Mass: 163.24 67-162/88-224 g LV Mass Index: 90.19 43-95/49-115 g/m2 2D Systolic Function EF 4C: 55.50 >55% EF 2C: 56.80 >55% EF BiP: 55.00 >55% Great Vessels Aorta Ao Asc: 4.10 2.1-3.4 cm Ao Arch: 3.00 Updated in Other Vendor System with Status of Final Thomas Ardon MD electronically signed on 11/17/2023 8:33:24 AM with status of Final
== END ==
LOC: HO.CARD 14:41
PROVIDERS: PCP Nurse Practitioner Family; Visit Provider Internal Medicine
DX: I77.810 Thoracic aortic ectasia (principal)
CPT/HCPCS: 93308

== ENCOUNTER → 2023-11-16 14:44 | Outpatient (BNV) | payer OTHER, SELFPAY | PROVIDERS: PCP Nurse Practitioner Family; Visit Provider Internal Medicine | DX: I77.810 Thoracic aortic ectasia (principal) | CPT/HCPCS: 93308 ==

== ENCOUNTER 2023-11-24 14:26 | Outpatient (AMB) | payer OTHER, SELFPAY ==
--- NOTE | 2023-11-24 14:42 | A.OFFVIS_ITS ---
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 To recall, in June 2021, patient had been on vacation and it seems that she had alcohol consumption during that time. When she returned back from vacation, she states she went into atrial fibrillation. That led to hospitalization at [facility]. Initially, IV Cardizem was tried but subsequently, it seems that due to lack of response to medications she underwent synchronized cardioversion. Then put on short-term anticoagulation for a few weeks and nothing since that time. Then switched from [facility] cardiology. She also has high blood pressure. Additionally gets anxiety/panic type episodes. In those instances, blood pressures have been almost 200 mm Hg. Currently taking diltiazem which is probably helping both the atrial fibrillation as well as diltiazem. Blood pressure seems much better but still borderline high. She also has mildly dilated ascending aorta. Could be related to blood pressure issues. No other cardiac history in the past apart from a single episode of atrial fibrillation. Otherwise, there is a history of alcohol consumption on Fridays or Saturdays when she drinks about 3 beers or so. No major cardiac issues in family. Mother because of pulmonary embo lism that apparently happened after back surgery. She was in her 60s. [facility] Medical History (Updated 11/24/23 @ 15:06 by Thomas Ardon MD) Afib PAF (paroxysmal atrial fibrillation) Hypertension Family History Mother Hypertension Pulmonary embolism Father Hypertension Social History Household Members: Spouse Both parents involved: No Caregiver staying overnight: No Housing: House Alcohol intake: current Patient Tobacco Use Status: Never used Tobacco e-Cigarette/Vaping Use: Never Used Second Hand Smoke Exposure: No Substance Use Type: Marijuana service: No Current occupational status: employed Current occupation: Teacher at [employer] Cognitive needs: No Hearing needs: No Vision needs: No Review of Systems Const Denies chills, Denies fatigue, Denies fever(s), Denies weight gain and Denies weight loss ENT Denies dizziness Card Denies chest pain, Denies leg edema, Denies lightheadedness, Denies palpitations, Denies dyspnea on exertion, Denies orthopnea and Denies other Resp Denies cough and Denies dyspnea on exertion GI Denies hematochezia and Denies change in stool character Musc Denies abnormal gait, Denies muscle weakness, Denies numbness, Denies radiating pain into limb and Denies tingling Neuro Denies abnormal gait, Denies dizziness, Denies numbness and Denies tingling Endo Denies fatigue and Denies palpitations Physical Exam Vital Signs: Last Vital Signs Pulse 76 11/24/23 14:43 BP 136/86 11/24/23 14:43 BMI result Body Mass Index 33.6 Const General: comfortable and no acute distress Orientation/consciousness: patient oriented x3 HEENT Other: Unremarkable Head: Yes normal to inspection Neck Neck: Yes normal visual inspection Chest Chest palpation & inspection: normal inspection of the chest Resp Auscultation: clear to auscultation bilaterally Cardio Palpation: normal PMI Heart sounds: S1 normal heart sound present, S2 normal heart sound present, no gallops, no murmurs and no rubs GI Palpation (GI): Soft to palpation Back/Spine/Pelvis Other: unremarkable Skin General skin exam: no rashes or lesions noted Neuro General: patient oriented x3 Extrem General: Yes normal to inspection Psych Mental Status: mental status grossly normal Assessment & Plan Assessment & Plan (1) PAF (paroxysmal atrial fibrillation): Code(s): I48.0 - Paroxysmal atrial fibrillation Category: Medical Plan: Isolated episode in setting of alcohol excess. She is on diltiazem. Not on anticoagulation. No recurrence. (2) Hypertension: Code(s): I10 - Essential (primary) hypertension Category: Medical Qualifiers: Hypertension type: primary hypertension Qualified Code(s): I10 - Essential (primary) hypertension Plan: Still slightly elevated. She is on diltiazem which is certainly helping as it has been much higher in the past. We can add losartan 25 mg daily. She should be around or lower than 120/80 mm Hg due to ascending aortic enlargement. We can check labs in a couple of weeks after starting the medication. She will let us know about home blood pressures. (3) Mild dilation of ascending aorta: Code(s): I77.810 - Thoracic aortic ectasia Category: Medical Plan: Most recently, ascending aortic size 4.1 cm. This is similar to previous readings. We will follow this periodically. Recheck in 1 year. Family screening has also been discussed. Orders: Orders Basic Metabolic Panel 2 Weeks I10 - Essential (primary) hypertension Medications: New losartan 25 mg PO DAILY 90 tabs 3RF Coding Level of Care Code Est Pt Level 4 (65692) Diagnoses PAF (paroxysmal atrial fibrillation) I48.0 Primary hypertension I10 Hypertension type: primary hypertension Mild dilation of ascending aorta I77.810
[2023-11-24 14:43] VITALS: BP 136/86; PULSE 76; BMI 33.6
== END 2023-11-24 15:00 | disposition home or self-care (01) ==
PROVIDERS: Visit Provider Internal Medicine
DX: I48.0 Paroxysmal atrial fibrillation (principal); I10 Essential (primary) hypertension; I77.810 Thoracic aortic ectasia
CPT/HCPCS: 99214

== ENCOUNTER → 2023-11-24 14:26 | Outpatient (BNVA) | payer OTHER, SELFPAY | PROVIDERS: Visit Provider Internal Medicine ==

== ENCOUNTER 2024-01-03 15:08 | Outpatient (AMB) | payer OTHER, SELFPAY ==
--- NOTE | 2024-01-03 15:16 | A.OFFPC_ITS ---
Vital Signs 01/03/24 15:19 01/03/24 15:41 Height 5 ft 4 in Weight 198 lb BMI 34.0 BP 134/72 128/72 Blood Pressure Location Lt brachial Rt brachial Position Sitting Sitting Respiration 15 Pulse 71 Pulse Source Pulse Oximeter Pulse Oximetry (%) 98 Oxygen Delivery Method Room Air Intake Visit Reasons: follow up cardiology appointment Intake Note: follolw up cardiology appt Allergies No Known Allergies Allergy (Verified 01/03/24 15:23) Medication List - Last Reconciled 01/03/24 by Keli Al, [facility]- cholecalciferol (vitamin D3) 50 mcg PO DAILY diltiazem HCl ER 120 mg PO BID 90 days escitalopram oxalate (Lexapro) 20 mg PO DAILY losartan 25 mg PO DAILY Tobacco use date assessed: 05/26/23 Dental Screening Dental Screen Date: 05/26/23 HPI HPI Comments History of Present Illness Details 38-year-old female with paroxysmal AFib Status post cardioversion May 2021, hypertension, PETAR, dilated ascending aorta Family Hx: no changes. Reports hx of skin cancer and cardiac issues. Mom of PE age 62 in age 2021 Brother of drug overdose 2021 Social: Works as a teacher Echo 06/2021 shows normal left ventricular size, left ventricular wall thickness is upper normal, LV systolic function is normal. The left ventricular ejection fraction 60-65% there was no regional motion abnormalities. Normal diastolic dysfunction. The right ventricle is normal in size and function. There is no mention of any further dilation of the ascending aorta. Echo October 2021 with normal systolic function, normal diastolic function, normal atrial size and no significant valve disease. Mildly dilated ascending aorta measuring 4.1 cm. Echo 05/06/23 Normal LV ejection fraction of 65-70%, Normal cardiac valvular Doppler, Normal RV systolic pressure, Mildly dilated ascending aorta at 4.2 cm, No gross pericardial effusion Echo 11/16/2023 ejection fraction 55-60%, mild dilation of the ascending aorta 4.1 cm no significant change compared to prior study date of 05/06/2023 Specialist [facility] Cardiology Health Maintenance: Needs annual echo surveillance last one 11/2023 Pap smear had appt in October 2023; last pap 2021 WNL. Immunizations: Declines flu shot. Tdap 04/14/23 Specialist [facility] [place] Cardiology Counseling Consult notes reviewed: Cards 11/24/23 We can add losartan 25 mg daily. She should be around or lower than 120/80 mm Hg due to ascending aortic enlargement. We can check labs in a couple of weeks after starting the medication. She will let us know about home blood pressures. Here today for routine follow up of chronic conditions Since last office visit she had her annual follow up with Cardiology, repeat echo. Taking the losartan 25mg daily,. Taking in the AM. . Has not checked BP at home. Will get repeat labs done today. She continues on the diltiazem without change. Denies cardiac complaints. Her anxiety is very well controlled on the current dose of escitalopram 20 mg daily. Cont in counseling once per week, this also has been quite helpful. Would like to discuss medications to assist in weight loss. The use of GLP ones, Wellbutrin, naloxone, and metformin were discuss today. She denies a personal history of seizures. Admits to snacking in mindless eating. Plan: Start Wellbutrin XL 150 mg p.o. q.a.m.. Educated about the side effects which could be anxiety, if this occurs advised to send me a message on the portal. I will titrate the medication to effect. Blood pressure is well controlled today on current medications. Labs today, will post to portal once resulted. Mood is well controlled. Continue taking escitalopram, losartan and Cardizem. Continue care with counselor and annual follow up with Cardiology. RTO 8weeks for wt check and f/u of wellbutrin start, sooner PRN . This note is constructed using voice recognition software. While every effort has been made to ensure accuracy in transcription manager, still errors may have been included Sometimes, these errors may affect the content or meaning of the given sentence . Total time spent caring for the patient today was 30 minutes. This includes time spent before the visit reviewing the chart, time spent during the visit, and time spent after the visit on documentation [facility] Medical History (Updated 01/03/24 @ 15:48 by TRICIA Frederick) Afib PAF (paroxysmal atrial fibrillation) Hypertension Family History Mother Hypertension Pulmonary embolism Father Hypertension Social History Household Members: Spouse Housing: House Alcohol intake: current Patient Tobacco Use Status: Never used Tobacco e-Cigarette/Vaping Use: Never Used Second Hand Smoke Exposure: No Substance Use Type: Marijuana service: No Current occupational status: employed Current occupation: Teacher at [employer] Cognitive needs: No Hearing needs: No Vision needs: No Questionnaire PHQ-9 Over the last 2 weeks, how often have you been bothered by any of the following problems? 1. Little interest or pleasure in doing things: not at all 2. Feeling down, depressed, or hopeless: not at all 3. Trouble falling or staying asleep, or sleeping too much: not at all 4. Feeling tired or having little energy: not at all 5. Poor appetite or overeating: not at all 6. Feeling bad about yourself - or that you are a failure or have let yourself or your family down: not at all 7. Trouble concentrating on things, such as reading the newspaper or watching television: not at all 8. Moving or speaking so slowly that other people could have noticed. Or the opposite - being so fidgety or restless that you have been moving around a lot more than usual: not at all 9. Thoughts that you would be better off or of hurting yourself in some way: not at all Total score: 0 28958 - PHQ-9 Billing: Yes Source: Developed by Drs. Pete Sue, Hiwot Hopper, Lucas Aguilar and colleagues, with an educational lance from [employer]. Thrive Questionnaire Date Thrive assessed: 01/03/24 I am a: Patient What is your living situation today?: I have a steady place to live Within the past 12 months, did the food you bought not last and you didn't have the money to get more?: Never true Within the past 12 months, did you worry whether your food would run out before you got money to buy more?: Never true Do you have trouble paying for medicines?: No Do you have trouble getting transportation to medical appointments?: No Do you have trouble paying your heating and electricity bill?: No Do you have trouble taking care of your child, family member or friend?: No Do you have trouble with day-to-day activities such as bathing, preparing meals, shopping, managing finances, etc.?: No Are you currently unemployed and looking for a job?: No Are you interested in more education?: No Please select the resources that you would like help with: None Currently or been in a relationship where the following occur: No concerns reported THRIVE Score: 0 AUDIT C Alcohol Use Questionnaire (AUDIT-C) 1. How often do you have a drink containing alcohol?: 2-3 times a week 2. How many drinks containing alcohol do you have on a typical day when you are drinking?: 3 or 4 3. How often do you have six or more drinks on one occasion?: Less than monthly Total Score: 5 PETAR-7 AMB Questionnaire PETAR-7 Date PETAR - 7 assessed: 01/03/24 Feeling nervous, anxious, or on edge: 0 = Not at all Not being able to stop or control worryin = Not at all Worrying too much about different things: 0 = Not at all Trouble relaxin = Not at all Being so restless that it is hard to sit still: 0 = Not at all Becoming easily annoyed or irritable: 0 = Not at all Feeling afraid as if something awful might happen: 0 = Not at all Total PETAR-7 score (0-4 normal; 5-9 mild; 10-14 moderate; 15-21 severe): 0 Source: Developed by Drs. Pete Sue, Hiwot Hopper, Lucas Aguilar and colleagues, with an educational lance from [employer]. PETAR-7 Assessment Billing PETAR-7 Assessment Tool: PETAR-7 Assessment 87363 Physical exam (Primary Care) BMI Assessment/Plan discussion: High BMI High, discussed plan: lifestyle and other Tobacco/Smoking Status: Tobacco use Status Tobacco use date assessed 05/26/23 01/03/24 15:18 Patient Tobacco Use Status Never used Tobacco 01/03/24 15:18 e-Cigarette/Vaping Use Never Used 01/03/24 15:18 PHQ-9: PHQ-9 Score PHQ-9: Total score 0 01/03/24 15:18 Thrive Assessment: Date of Thrive Assessment Date Thrive assessed 01/03/24 01/03/24 15:18 Currently or been in a relationship where the following occur: No concerns reported Coding Level of Care Code Est Pt Level 4 (75554) Complex EM visit Add On G2211 Diagnoses PETAR (generalized anxiety disorder) F41.1 Mild dilation of ascending aorta I77.810 Primary hypertension I10 Hypertension type: primary hypertension BMI 34.0-34.9,adult Z68.34 Class 1 obesity due to excess calories with serious comorbidity and body mass index (BMI) of 34.0 to 34.9 in adult E66.811; E66.09; Z68.34 Obesity type: due to excess calories Serious obesity comorbidity presence: with serious comorbidity Additional Codes PETAR-7 Assessment Billing - PETAR-7 Assessment Tool: PETAR-7 Assessment 42684 ([id number]) Assessment & Plan Assessment & Plan (1) PETAR (generalized anxiety disorder): Code(s): F41.1 - Generalized anxiety disorder Category: Medical Plan: . (2) Mild dilation of ascending aorta: Code(s): I77.810 - Thoracic aortic ectasia Category: Medical Plan: . (3) Hypertension: Code(s): I10 - Essential (primary) hypertension Category: Medical Qualifiers: Hypertension type: primary hypertension Qualified Code(s): I10 - Essential (primary) hypertension Plan: . (4) BMI 34.0-34.9,adult: Code(s): Z68.34 - Body mass index [BMI] 34.0-34.9, adult Category: Medical Plan: . (5) Class 1 obesity with body mass index (BMI) of 34.0 to 34.9 in adult: Comment: BMI 34 with PAF and HTN Code(s): E66.811 - Obesity, class 1; Z68.34 - Body mass index [BMI] 34.0-34.9, adult Category: Medical Qualifiers: Obesity type: due to excess calories Serious obesity comorbidity presence: with serious comorbidity Qualified Code(s): E66.811 - Obesity, class 1; E66.09 - Other obesity due to excess calories; Z68.34 - Body mass index [BMI] 34.0-34.9, adult Plan: . Plan . Medications: New bupropion HCl XL (Wellbutrin XL) 150 mg PO QAM 90 tabs 0RF Refilled escitalopram oxalate (Lexapro) 20 mg PO DAILY 90 tabs 1RF
[2024-01-03 15:19] VITALS: BP 134/72; PULSE 71; RESP 15; O2SAT 98; BMI 34.0
[2024-01-03 15:41] VITALS: BP 128/72
== END 2024-01-03 15:46 | disposition home or self-care (01) ==
PROVIDERS: PCP Nurse Practitioner Family; Visit Provider Nurse Practitioner Family
DX: F41.1 Generalized anxiety disorder (principal); I77.810 Thoracic aortic ectasia; I10 Essential (primary) hypertension; Z68.34 Body mass index [BMI] 34.0-34.9, adult; E66.811 Obesity, class 1; E66.09 Other obesity due to excess calories

== ENCOUNTER → 2024-01-03 15:08 | Outpatient (BNVA) | payer OTHER, SELFPAY | PROVIDERS: PCP Nurse Practitioner Family; Visit Provider Nurse Practitioner Family ==

== ENCOUNTER 2024-01-03 15:39 | Outpatient (REF) | payer OTHER, SELFPAY ==
[2024-01-03 17:54] LABS: Anion Gap 11 (12-20); Blood Urea Nitrogen 9 mg/dL (9-16); Calcium 9.4 mg/dL (8.4-10.2); Carbon Dioxide 27 mmol/L (22-29); Chloride 104 mmol/L (96-108); Estimated Glomerular Filt Rate > 60; Glucose Random 87 mg/dL (60-115); Sodium 138 mmol/L (135-145)
== END 2024-01-03 15:40 | disposition home or self-care (01) ==
LOC: HO.WFDLDS 15:39
PROVIDERS: Visit Provider Internal Medicine
DX: I10 Essential (primary) hypertension (principal); F41.1 Generalized anxiety disorder; I77.810 Thoracic aortic ectasia; E66.811 Obesity, class 1; E66.09 Other obesity due to excess calories; Z68.34 Body mass index [BMI] 34.0-34.9, adult
CPT/HCPCS: 36415; 80048; 96127

== ENCOUNTER 2024-01-17 12:51 | Outpatient (AMB) | payer OTHER, SELFPAY ==
--- NOTE | 2024-01-17 13:11 | MHC.OFFWIV ---
Intake Vital Signs 01/17/24 13:15 01/17/24 13:59 Height 5 ft 4 in Weight 193 lb BMI 33.1 BP 122/70 Blood Pressure Location Lt brachial Position Sitting Respiration 13 Pulse 97 103 H Pulse Source Pulse Oximeter Pulse Oximeter Temp 97.0 F Temp Source Oral Pulse Oximetry (%) 97 100 Oxygen Delivery Method Room Air Room Air Intake Visit Reasons: cough Intake Note: Patient complaining of cough, aches, sweating since last night. Patient Tobacco Use Status: Never used Tobacco Municipal Engineer Required: No Allergies No Known Allergies Allergy (Verified 01/17/24 13:37) Medication List - Last Reconciled 01/17/24 by Keli Al, [employer]- bupropion HCl XL (Wellbutrin XL) 150 mg PO QAM cholecalciferol (vitamin D3) 50 mcg PO DAILY diltiazem HCl ER 120 mg PO BID 90 days escitalopram oxalate (Lexapro) 20 mg PO DAILY losartan 25 mg PO DAILY Do you need a note to return to daycare/school/sports/work: No HPI HPI Comments History of Present Illness Details 38-year-old female with paroxysmal AFib Status post cardioversion May 2021, hypertension, PETAR, dilated ascending aorta Here today with complaints of flu-like symptoms that started a few days ago. Her symptoms include drenching sweats, cough, runny nose, sore throat. 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 Xrpb-iaa-jduxljl remedies have not provided relief. Denies an asthma history. Exam Awake alert, mildly ill-appearing Sclera and conjunctiva clear bilat Nares with white discharge, turbinates within normal limits, no sinus tenderness with palpation bilat TM intact with mild clotting on the right, clear on the left MMM, pharynx WNL RRR LS hacking paroxysmal cough noted during exam, inspiratory expiratory wheezes in the right upper lobe otherwise clear Warm, diaphoretic. Plan Viral swab obtained today In office Neb to help cough. LS Improved, however cont withRUL wheezing. Cont w/ cough. Sp02 100% Stat CXR today. Will call later w/ results and tx plan. called 1644 with results of the chest x-ray as noted below which is positive for a right upper lobe pneumonia. The viral swab is not yet back. The plan will be to treat her with doxycycline 100 mg p.o. b.i.d. x7 days. Mucinex ER 1 tab p.o. b.i.d. as needed for cough. Advised that it is okay to use an expectorant but we do not want to completely suppress the cough. Okay to use fmyy-bmt-witefti fever reducers and analgesics as needed. Out of work note posted to the portal with return 01/25/2024. I did tell her that if she does develop high fever that isn't responsive to nmva-hnt-daugqfh medications and/or shortness of breath that she should seek care in the emergency room. Otherwise I would like for her to have a repeat chest x-ray done in 1 month. This has been ordered today. And an office visit to follow. Viral swab results will be posted to the portal. If I have any change in the treatment plan I will make a phone call to her. Otherwise proceed as above. This note is constructed using voice recognition software. While every effort has been made to ensure accuracy in process camera operator, still errors may have been included Sometimes, these errors may affect the content or meaning of the given sentence . Total time spent caring for the patient today was 40 minutes. This includes time spent before the visit reviewing the chart, time spent during the visit, and time spent after the visit on documentation [facility] Medical History (Updated 01/17/24 @ 16:52 by Keli Al [facility]) Afib PAF (paroxysmal atrial fibrillation) Hypertension Family History Mother Hypertension Pulmonary embolism Father Hypertension Social History Household Members: Spouse Both parents involved: No Caregiver staying overnight: No Housing: House Alcohol intake: current Patient Tobacco Use Status: Never used Tobacco e-Cigarette/Vaping Use: Never Used Second Hand Smoke Exposure: No Substance Use Type: Marijuana service: No Current occupational status: employed Current occupation: Teacher at [employer] Cognitive needs: No Hearing needs: No Vision needs: No Physical Exam Vital Signs: Last Vital Signs Temp 97.0 F 01/17/24 13:15 Pulse 103 H 01/17/24 13:59 Resp 13 01/17/24 13:15 BP 122/70 01/17/24 13:15 Pulse Ox 100 01/17/24 13:59 Oxygen Delivery Method Room Air 01/17/24 13:59 BMI result Body Mass Index 33.1 Office Procedures Nebulizer Treatment Nebulizer Treatment 74514-Lkchjbvpf/MDI RX initial, or Nebulizer Subsequent Treatment Office Meds ipratropium 0.5 mg-albuterol 3 mg (2.5 mg base)/3 mL nebulization soln Performing Provider: JAYLEN Frederick Performing Location: [facility] Administered by: JAYLEN Frederick on 01/17/24 13:49 Dose Route Admin Location Dispensed Lot Number Expiration Date [facility] Measurer Machine 3 mL inhalation OFFICE 3 mL Results Reviewed Results Reviewed: [facility] [address] [place] [address] XRay Report Signed Patient: Mckenna Dumas MR#: [id number] : 1985 Acct:[id number] Age/Sex: 38 / F ADM Date: 01/17/24 Loc: [facility] Attending Dr: Keli YORK Ordering Physician: Keli Al Date of Service: 01/17/24 Procedure(s): XR chest 2V Accession Number(s): [id number] cc: Keli Al~ EXAMINATION: XR CHEST CLINICAL INFORMATION: Cough. Right upper lobe wheezing. Concern for pneumonia. COMPARISON: None available. TECHNIQUE: 2 views of the chest were obtained. FINDINGS: Patchy right lower lobe opacities within the periphery of the right lung base. No additional airspace consolidation. No pleural effusion or pneumothorax. Unremarkable cardiomediastinal silhouette. XR/XR chest 2V IMPRESSION: Patchy right lower lobe opacities, consistent with pneumonia. Electronically signed by: Uday Madison MD 01/17/2024 04:00 PM [facility] Dictated By: Uday Madison MD Signed By: <Electronically signed by Uday Madison MD in OV> 01/17/24 1600 DD/ 1436 TD/TT: 01/17/24 1440 Party Host/Hostess: SR Assessment & Plan Assessment & Plan (1) Right upper lobe pneumonia: Code(s): J18.9 - Pneumonia, unspecified organism Qualifiers: Pneumonia type: due to unspecified organism Qualified Code(s): J18.9 - Pneumonia, unspecified organism Plan: . (2) Cough: Code(s): R05.9 - Cough, unspecified Qualifiers: Cough type: acute Qualified Code(s): R05.1 - Acute cough Plan: . Plan . Orders: Orders AMB Nebulizer Treatment Today R05.9 - Cough, unspecified SARS-CoV2/FLU/RSV Today R05.9 - Cough, unspecified, R09.89 - Other specified symptoms and signs involving the circulatory and respiratory systems XR chest 2V Today R05.9 - Cough, unspecified XR chest 2V 1 Month J18.9 - Pneumonia, unspecified organism Medications: New doxycycline hyclate 100 mg PO BID 7 days 14 caps 0RF guaifenesin ER (Mucinex) 1,200 mg PO BID PRN 60 tabs 0RF cough Coding Level of Care Code Est Pt Level 5 (22556) Diagnoses Pneumonia of right upper lobe due to infectious organism J18.9 Pneumonia type: due to unspecified organism Acute cough R05.1 Cough type: acute CPT Codes Nebulizer Treatment - Nebulizer Treatment, initial or subsequent: [id number]-[id number]/MDI RX initial, or Nebulizer Subsequent Treatment ([id number])
[2024-01-17 13:15] VITALS: BP 122/70; PULSE 97; RESP 13; TEMP 36.1; O2SAT 97; BMI 33.1
[2024-01-17 13:59] VITALS: PULSE 103; O2SAT 100
== END 2024-01-17 14:54 | disposition home or self-care (01) ==
LOC: HO.HMCFM 12:51
PROVIDERS: PCP Nurse Practitioner Family; Visit Provider Nurse Practitioner Family
DX: J18.9 Pneumonia, unspecified organism (principal); R05.1 Acute cough

== ENCOUNTER 2024-01-17 12:51 | Outpatient (REF) | payer OTHER, SELFPAY ==
--- NOTE | ~2024-01-17 | XR_ITS ---
EXAMINATION: XR CHEST CLINICAL INFORMATION: Cough. Right upper lobe wheezing. Concern for pneumonia. COMPARISON: None available. TECHNIQUE: 2 views of the chest were obtained. FINDINGS: Patchy right lower lobe opacities within the periphery of the right lung base. No additional airspace consolidation. No pleural effusion or pneumothorax. Unremarkable cardiomediastinal silhouette. XR/XR chest 2V IMPRESSION: Patchy right lower lobe opacities, consistent with pneumonia. Electronically signed by: Uday Madison MD 01/17/2024 04:00 PM [facility]
[2024-01-17 19:00] LABS: Influenza A PCR NEGATIVE (Negative); Influenza B PCR NEGATIVE (Negative); Resp Syncy Virus RNA Qual PCR NEGATIVE (Negative); SARS COV2 PCR INHOUSE NEGATIVE (Negative)
== END 2024-01-17 12:52 | disposition home or self-care (01) ==
LOC: HO.HMGCX 12:51
PROVIDERS: PCP Nurse Practitioner Family; Visit Provider Nurse Practitioner Family
DX: R05.9 Cough, unspecified (principal); R09.89 Other specified symptoms and signs involving the circulatory and respiratory systems; R06.2 Wheezing
CPT/HCPCS: 0241U; 71046; 94640

== ENCOUNTER 2024-02-22 15:37 | Outpatient (AMB) | payer OTHER, SELFPAY ==
--- NOTE | 2024-02-22 15:38 | MHC.PC.OV ---
Intake Visit Reasons: fu Wellbutrin start for wt loss FU RUL PNA, CXR Allergies No Known Allergies Allergy (Verified 02/22/24 15:40) Medication List - Last Reconciled 02/22/24 by AMADOU Frederick- bupropion HCl XL (Wellbutrin XL) 150 mg PO QAM cholecalciferol (vitamin D3) 50 mcg PO DAILY diltiazem HCl ER 120 mg PO BID 90 days escitalopram oxalate (Lexapro) 20 mg PO DAILY losartan 25 mg PO DAILY Tobacco use date assessed: 05/26/23 Dental Screening Dental Screen Date: 05/26/23 HPI HPI Comments History of Present Illness Details 38-year-old female with paroxysmal AFib Status post cardioversion May 2021, hypertension, PETAR, dilated ascending aorta History of Present Illness The patient is a 38-year-old female presenting with a one-month follow-up for right upper lobe pneumonia. The patient reports significant improvement in her symptoms since her initial diagnosis. Initially, she was prescribed antibiotics, which she completed. During the treatment course, she developed sores around her mouth, which have since resolved w the use of Abreva. She reports her cough has fully resolved, and her breathing has returned to baseline with no residual symptoms. No further imaging studies have been completed since the initial diagnosis. She was advised to have a follow-up chest X-ray, which remains pending. Her vital signs at home indicate pulse of 74 beats per minute, with no capability to measure oxygen saturation. Review of Systems - Respiratory: Reports complete resolution of cough - General: Denies current symptoms associated with resolved mouth sores Plan 1. Pneumonia, right upper lobe: - Patient advised to schedule and complete the imaging study over the upcoming weekend. Patient was informed and verbally consented to the use of an ambient scribe for clinic note documentation during this visit. Discussion Notes I discussed with the patient the importance of follow-up imaging to ensure complete resolution of pneumonia, despite clinical improvement. I explained that subtle remnants of pneumonia can persist in the lung and potentially cause future complications if not confirmed resolved. I emphasized adherence to guidelines recommending confirmatory imaging in cases of pneumonia. I advised her to complete the chest X-ray this weekend and informed her that another provider will be available for any concerns during my planned absence. I assured her that if the imaging is clear, no further steps would be necessary at this point. We also discussed that having pneumonia once does not escalate her risk for subsequent episodes. Patient Instructions - Complete the ordered chest X-ray this weekend and have the results posted on the patient portal. - Monitor symptoms and contact the office if any respiratory symptoms recur. - Continue monitoring blood pressure and pulse at home. - Schedule an in-person appointment in six to eight weeks for further evaluation and monitoring. - Reach out via the portal or office in case of any interim health issues, acknowledging temporary coverage by another provider during absence. Total time spent caring for the patient today was 15 minutes. This includes time spent before the visit reviewing the chart, time spent during the visit, and time spent after the visit on documentation [facility] Medical History (Updated 02/22/24 @ 15:46 [facility] Afib PAF (paroxysmal atrial fibrillation) Hypertension Family History Mother Hypertension Pulmonary embolism Father Hypertension Social History Household Members: Spouse Both parents involved: No Caregiver staying overnight: No Housing: House Alcohol intake: current Patient Tobacco Use Status: Never used Tobacco e-Cigarette/Vaping Use: Never Used Second Hand Smoke Exposure: No Substance Use Type: Marijuana service: No Current occupational status: employed Current occupation: Teacher at [employer] Cognitive needs: No Hearing needs: No Vision needs: No Questionnaire Thrive Questionnaire Date Thrive assessed: 01/03/24 PETAR-7 AMB Questionnaire PETAR-7 Date PETAR - 7 assessed: 01/03/24 Source: Developed by Drs. Pete Sue, Hiwot Hopper, Lucas Aguilar and colleagues, with an educational lance from [employer]. Physical exam (Primary Care) Tobacco/Smoking Status: Tobacco use Status Tobacco use date assessed 05/26/23 01/03/24 15:18 Patient Tobacco Use Status Never used Tobacco 01/17/24 13:13 e-Cigarette/Vaping Use Never Used 01/03/24 15:18 Thrive Assessment: Date of Thrive Assessment Date Thrive assessed 01/03/24 01/03/24 15:18 Telehealth Telehealth Telehealth Platform: [facility] Location of provider rendering services: practice address Location of patient: address on file Patient Identification confirmed using: Name, : Yes Telehealth method: voice only Patient verbally consented to treatment: Yes Patient verbally consented to billing insurance company: Yes Patient informed of any privacy concerns related to visit: Yes Minutes spent on Phone/Video with Pt.: 7 Coding Level of Care Code Tele Est Pt Level 3 (60387) Complex EM visit Add On G2211 Diagnoses Pneumonia of right upper lobe due to infectious organism J18.9 Pneumonia type: due to unspecified organism Acute cough R05.1 Cough type: acute Assessment & Plan Assessment & Plan (1) Right upper lobe pneumonia: Code(s): J18.9 - Pneumonia, unspecified organism Category: Medical Qualifiers: Pneumonia type: due to unspecified organism Qualified Code(s): J18.9 - Pneumonia, unspecified organism (2) Cough: Code(s): R05.9 - Cough, unspecified Category: Medical Qualifiers: Cough type: acute Qualified Code(s): R05.1 - Acute cough Plan .
--- OUTSIDE RECORDS SUMMARY | 2024-02-23 22:25 | XMS_ITS | Continuity of Care Document ---
Author Organization [facility] [place] [facility] Address [address] [address] Social History Not on File Plan of Treatment Not on file
== END 2024-02-22 15:48 | disposition home or self-care (01) ==
LOC: HO.HMCFM 15:37
PROVIDERS: PCP Nurse Practitioner Family; Visit Provider Nurse Practitioner Family
DX: J18.9 Pneumonia, unspecified organism (principal); R05.1 Acute cough

== ENCOUNTER 2024-02-23 14:34 | Outpatient (REF) | payer OTHER, SELFPAY | END 2024-02-23 14:35 | disposition home or self-care (01) | LOC: HO.HMGCX 14:34 | PROVIDERS: PCP Nurse Practitioner Family; Visit Provider Nurse Practitioner Family | DX: J18.9 Pneumonia, unspecified organism (principal) | CPT/HCPCS: 71046 ==

== ENCOUNTER 2024-06-20 12:51 | Outpatient (AMB) | payer OTHER, SELFPAY ==
--- NOTE | 2024-06-20 12:57 | A.OFFPC_ITS ---
Vital Signs 06/20/24 13:18 Height 5 ft 4 in Weight 202 lb 8 oz BMI 34.8 BP 124/72 Blood Pressure Location Lt brachial Position Sitting Respiration 12 Pulse 86 Pulse Source Pulse Oximeter Temp 97.5 F Temp Source Oral Pulse Oximetry (%) 98 Oxygen Delivery Method Room Air Intake Visit Reasons: med f/u Intake Note: Follow up to review meds and patient also has a ingrown toe nail on left foot Paper Tube Grader Required: No Allergies No Known Allergies Allergy (Verified 06/20/24 13:31) Medication List - Last Reconciled 06/20/24 by Keli Al, SKETCH [employer]ER- bupropion HCl XL (Wellbutrin XL) 150 mg PO QAM cholecalciferol (vitamin D3) 50 mcg PO DAILY diltiazem HCl ER 120 mg PO BID 90 days escitalopram oxalate (Lexapro) 20 mg PO DAILY losartan 25 mg PO DAILY Tobacco use date assessed: 06/20/24 Dental Screening Dental Screen Date: 06/20/24 Did you have a dental visit in the last 12 months?: Yes Did you have a dental problem in the last 6 months where you did not have access to dental care?: No Was dental information given to patient?: Patient has dentist HPI HPI Comments History of Present Illness Details 38-year-old female with paroxysmal AFib Status post cardioversion May 2021, hypertension, PETAR, dilated ascending aorta, Vit D def Family Hx: no changes. Reports hx of skin cancer and cardiac issues. Mom of PE age 62 in age 2021 Brother of drug overdose 2021 Social: Works as a teacher Echo 06/2021 shows normal left ventricular size, left ventricular wall thickness is upper normal, LV systolic function is normal. The left ventricular ejection fraction 60-65% there was no regional motion abnormalities. Normal diastolic dysfunction. The right ventricle is normal in size and function. There is no mention of any further dilation of the ascending aorta. Echo October 2021 with normal systolic function, normal diastolic function, normal atrial size and no significant valve disease. Mildly dilated ascending aorta measuring 4.1 cm. Echo 05/06/23 Normal LV ejection fraction of 65-70%, Normal cardiac valvular Doppler, Normal RV systolic pressure, Mildly dilated ascending aorta at 4.2 cm, No gross pericardial effusion Echo 11/16/2023 ejection fraction 55-60%, mild dilation of the ascending aorta 4.1 cm no significant change compared to prior study date of 05/06/2023 Specialist [facility] [place] [place] Maintenance: Needs annual echo surveillance last one 11/2023 Pap smear had appt in October 2023; last pap 2021 WNL. Immunizations: Declines flu shot. Tdap 04/14/23 Specialist [facility] Counseling History of Present Illness 38-year-old female here today for routine follow up on chronic conditions. Her generalized anxiety is well controlled on escitalopram 20 mg. Taking daily. At the last office visit Wellbutrin XL 150 mg was added to her regimen to help with weight loss and to further manage her anxiety. She reports that it has not had any profound improvement on her mood however she reports that she was happy with her anxiety control at the current time. She does report that it helps with the cravings however around the time of her menses she does have cravings and tends to eat outside of the norm. She has not had any weight loss with the use of the Wellbutrin. She was also not had any side effects such as abdominal pain or constipation. Vit D def - taking Vit d supplement. Hypertension is well controlled with use of losartan and Cardizem. She is routinely followed by [facility]'s Cardiology team. With the next office visit being in November. She does not check blood pressure at home as this causes worsening anxiety. The blood pressure is at goal today. c/o ingrown toe nail, L great toe. Was getting pedicures. Told she needs treatment before any more pedicures can be done. Denies fever, chills, drainage. Physical Exam Awake alert NAD PERRLA, EOMI RRR LS CTAB No edema BLE, L great toe nail ingrown, mild erythema, no drainage Normal pedal pulses Mood and affect appropriate Discussion Notes Her anxiety is well controlled on the escitalopram. There will be no changes in this. As she was not having weight loss with the Wellbutrin, we discussed increasing it to 300 mg daily or changing it to the SR version and dosing twice per day with the consideration of needing to add naltrexone in the future to further help with weight loss. She would like to continue with the once a day dosing for now. We will increase the Wellbutrin from 150 mg to 300 mg once per day. She will continue escitalopram 20 mg daily. Continue losartan, diltiazem & Vit D at the current dosing. Refill sent as requested. refer to podiatry for the left great toenail evaluation. Advised to soak in warm water and Epsom salt daily gently lift the nail labs. Do not cut we will manipulate the nail. Assessment and Plan I would like to see her back in the office in 3 months for complete physical exam with labs done 1 week before, sooner as needed. Consent Patient was informed and verbally consented to the use of an ambient scribe for clinic note documentation during this visit. Total time spent caring for the patient today was 30 minutes. This includes time spent before the visit reviewing the chart, time spent during the visit, and time spent after the visit on documentation, reviewing laboratory results, diagnostic imaging, medications, performing a medically necessary evaluation, counseling on diagnoses, care coordination, ordering appropriate tests, ordering appropriate medications, review of tests performed by other providers, reporting test results with the patient, communication with other healthcare providers. FOR[facility]LY [facility], [facility] Medical History (Updated 06/20/24 @ 17:03 by Keli Al [facility]) Afib Hypertension PAF (paroxysmal atrial fibrillation) Family History Mother Hypertension Pulmonary embolism Father Hypertension Social History Household Members: Spouse Both parents involved: No Caregiver staying overnight: No Housing: House Alcohol intake: current Patient Tobacco Use Status: Never used Tobacco e-Cigarette/Vaping Use: Never Used Second Hand Smoke Exposure: No Substance Use Type: Marijuana service: No Current occupational status: employed Current occupation: Teacher at [employer] Cognitive needs: No Hearing needs: No Vision needs: No Questionnaire PHQ-9 Over the last 2 weeks, how often have you been bothered by any of the following problems? 1. Little interest or pleasure in doing things: not at all 2. Feeling down, depressed, or hopeless: not at all 3. Trouble falling or staying asleep, or sleeping too much: not at all 4. Feeling tired or having little energy: not at all 5. Poor appetite or overeating: not at all 6. Feeling bad about yourself - or that you are a failure or have let yourself or your family down: not at all 7. Trouble concentrating on things, such as reading the newspaper or watching television: not at all 8. Moving or speaking so slowly that other people could have noticed. Or the opposite - being so fidgety or restless that you have been moving around a lot more than usual: not at all 9. Thoughts that you would be better off or of hurting yourself in some way: not at all Total score: 0 Depression Screening Interpretation: Negative Depression Screening Done: Yes 26007 - PHQ-9 Billing: Yes Source: Developed by Drs. Pete Sue, Hiwot Hopper, Lucas Aguilar and colleagues, with an educational lance from [employer]. Thrive Questionnaire Date Thrive assessed: 06/20/24 I am a: Patient What is your living situation today?: I have a steady place to live Within the past 12 months, did the food you bought not last and you didn't have the money to get more?: Never true Within the past 12 months, did you worry whether your food would run out before you got money to buy more?: Never true Do you have trouble paying for medicines?: No Do you have trouble getting transportation to medical appointments?: No Do you have trouble paying your heating and electricity bill?: No Do you have trouble taking care of your child, family member or friend?: No Do you have trouble with day-to-day activities such as bathing, preparing meals, shopping, managing finances, etc.?: No Are you currently unemployed and looking for a job?: No Are you interested in more education?: No Please select the resources that you would like help with: None Currently or been in a relationship where the following occur: No concerns reported THRIVE Score: 0 AUDIT C Alcohol Use Questionnaire (AUDIT-C) 1. How often do you have a drink containing alcohol?: 2-4 times a month 2. How many drinks containing alcohol do you have on a typical day when you are drinking?: 3 or 4 3. How often do you have six or more drinks on one occasion?: Never Total Score: 3 Score Reviewed/Action Taken: Yes PETAR-7 AMB Questionnaire PETAR-7 Date PETAR - 7 assessed: 06/20/24 Feeling nervous, anxious, or on edge: 0 = Not at all Not being able to stop or control worryin = Not at all Worrying too much about different things: 0 = Not at all Trouble relaxin = Not at all Being so restless that it is hard to sit still: 0 = Not at all Becoming easily annoyed or irritable: 0 = Not at all Feeling afraid as if something awful might happen: 0 = Not at all Total PETAR-7 score (0-4 normal; 5-9 mild; 10-14 moderate; 15-21 severe): 0 Source: Developed by Drs. Pete Sue, Hiwot Hopper, Lucas Aguilar and colleagues, with an educational lance from [employer]. PETAR-7 Assessment Billing PETAR-7 Assessment Tool: PETAR-7 Assessment 11590 Physical exam (Primary Care) Vital Signs: Last Vital Signs Temp 97.5 F 06/20/24 13:18 Pulse 86 06/20/24 13:18 Resp 12 06/20/24 13:18 BP 124/72 06/20/24 13:18 Pulse Ox 98 06/20/24 13:18 Oxygen Delivery Method Room Air 06/20/24 13:18 BMI result Body Mass Index 34.8 BMI Assessment/Plan discussion: High BMI High, discussed plan: lifestyle Tobacco/Smoking Status: Tobacco use Status Tobacco use date assessed 06/20/24 06/20/24 13:01 Patient Tobacco Use Status Never used Tobacco 06/20/24 12:58 e-Cigarette/Vaping Use Never Used 06/20/24 12:58 PHQ-9: PHQ-9 Score PHQ-9: Total score 0 06/20/24 13:33 Depression Screening Interpretation: Negative Thrive Assessment: Date of Thrive Assessment Date Thrive assessed 06/20/24 06/20/24 12:58 Currently or been in a relationship where the following occur: No concerns reported Coding Level of Care Code Est Pt Level 4 (26906) Complex EM visit Add On G2211 Diagnoses Ingrown toenail of left foot L60.0 Primary hypertension I10 Hypertension type: primary hypertension PAF (paroxysmal atrial fibrillation) I48.0 Borderline hyperlipidemia E78.5 Vitamin D deficiency E55.9 BMI 34.0-34.9,adult Z68.34 Class 1 obesity due to excess calories with serious comorbidity and body mass index (BMI) of 34.0 to 34.9 in adult E66.811; E66.09; Z68.34 Obesity type: due to excess calories Serious obesity comorbidity presence: with serious comorbidity PETAR (generalized anxiety disorder) F41.1 Additional Codes PETAR-7 Assessment Billing - PETAR-7 Assessment Tool: PETAR-7 Assessment 38872 ([id number]) PHQ-9 - 42049 - PHQ-9 Billing: Yes ([id number]) Assessment & Plan Assessment & Plan (1) Ingrown toenail of left foot: Code(s): L60.0 - Ingrowing nail Category: Medical (2) Hypertension: Code(s): I10 - Essential (primary) hypertension Category: Medical Qualifiers: Hypertension type: primary hypertension Qualified Code(s): I10 - Essential (primary) hypertension (3) PAF (paroxysmal atrial fibrillation): Code(s): I48.0 - Paroxysmal atrial fibrillation Category: Medical (4) Borderline hyperlipidemia: Code(s): E78.5 - Hyperlipidemia, unspecified Category: Medical (5) Vitamin D deficiency: Comment: 05/2023 total 17. Vit D3 2000IU Qevening, Code(s): E55.9 - Vitamin D deficiency, unspecified Category: Medical (6) BMI 34.0-34.9,adult: Code(s): Z68.34 - Body mass index [BMI] 34.0-34.9, adult Category: Medical (7) Class 1 obesity with body mass index (BMI) of 34.0 to 34.9 in adult: Comment: BMI 34 with PAF and HTN Code(s): E66.811 - Obesity, class 1; Z68.34 - Body mass index [BMI] 34.0-34.9, adult Category: Medical Qualifiers: Obesity type: due to excess calories Serious obesity comorbidity presence: with serious comorbidity Qualified Code(s): E66.811 - Obesity, class 1; E66.09 - Other obesity due to excess calories; Z68.34 - Body mass index [BMI] 34.0-34.9, adult (8) PETAR (generalized anxiety disorder): Code(s): F41.1 - Generalized anxiety disorder Category: Medical Plan . Orders: Orders Ferritin 3 Months E55.9 - Vitamin D deficiency, unspecified, E78.5 - Hyperlipidemia, unspecified, I10 - Essential (primary) hypertension, I48.0 - Paroxysmal atrial fibrillation Hemoglobin A1c 3 Months E55.9 - Vitamin D deficiency, unspecified, E78.5 - Hyperlipidemia, unspecified, I10 - Essential (primary) hypertension, I48.0 - Paroxysmal atrial fibrillation TSH reflex Free T4 3 Months E55.9 - Vitamin D deficiency, unspecified, E78.5 - Hyperlipidemia, unspecified, I10 - Essential (primary) hypertension, I48.0 - Paroxysmal atrial fibrillation Vitamin D 25-OH Total 3 Months E55.9 - Vitamin D deficiency, unspecified, E78.5 - Hyperlipidemia, unspecified, I10 - Essential (primary) hypertension, I48.0 - Paroxysmal atrial fibrillation Complete Blood Count no Diff 3 Months E55.9 - Vitamin D deficiency, unspecified, E78.5 - Hyperlipidemia, unspecified, I10 - Essential (primary) hypertension, I48.0 - Paroxysmal atrial fibrillation Comprehensive Met. Panel 3 Months E55.9 - Vitamin D deficiency, unspecified, E78.5 - Hyperlipidemia, unspecified, I10 - Essential (primary) hypertension, I48.0 - Paroxysmal atrial fibrillation Lipid Panel 3 Months E55.9 - Vitamin D deficiency, unspecified, E78.5 - Hyperlipidemia, unspecified, I10 - Essential (primary) hypertension, I48.0 - Paroxysmal atrial fibrillation Microalbumin, Random (w Creat) 3 Months E55.9 - Vitamin D deficiency, unspecified, E78.5 - Hyperlipidemia, unspecified, I10 - Essential (primary) hypertension, I48.0 - Paroxysmal atrial fibrillation Vitamin B12 and Folate 3 Months E55.9 - Vitamin D deficiency, unspecified, E78.5 - Hyperlipidemia, unspecified, I10 - Essential (primary) hypertension, I48.0 - Paroxysmal atrial fibrillation Referrals Podiatry Referral L60.0 - Ingrowing nail Medications: New bupropion HCl XL (Wellbutrin XL) 300 mg PO QAM 90 tabs 0RF Refilled cholecalciferol (vitamin D3) take with evening meal 50 mcg PO DAILY 90 caps 3RF escitalopram oxalate (Lexapro) 20 mg PO DAILY 90 tabs 1RF Discontinued bupropion HCl XL (Wellbutrin XL) Discontinued Reason: Doctor's Order 150 mg PO QAM 90 tabs 0RF
[2024-06-20 13:18] VITALS: BP 124/72; PULSE 86; RESP 12; TEMP 36.4; O2SAT 98; BMI 34.8
--- OUTSIDE RECORDS SUMMARY | 2024-06-20 15:31 | XMS_ITS ---
[facility] Name [facility] Encounters Encounter Type Encounter Reason Primary Diagnosis Location Date Emergency Abdominal Pain [facility] 1 04/26/2020 Care Team Organization Name Specialty Phone Email Start Date End Da te [facility] TAN MARTIN Primary [facility] 1 04/26/2020 02/23/2021
--- OUTSIDE RECORDS SUMMARY | 2024-06-20 15:31 | XMS_ITS | Clinical Summary ---
Author Organization [address] Address [address] [place] [address] Phone Care Team Providers Care Getterer Name Role Phone Roya Newell NP Primary Care Provider [phone] Allergies No known active allergies Social History Tobacco Use Types Packs/Day Years Used Date Smoking Tobacco: Never Assessed Comments Unknown Sex and Gender Information Value Date Recorded Sex Assigned at Not on file Legal Sex Female 9:44 PM EST Gender Identity Not on file Sexual Orientation Not on file Last Filed Vital Signs Vital Sign Reading Time Taken Comments Blood Pressure 175/93 02/22/2021 9:50 PM EST Pulse 94 02/22/2021 9:50 PM EST Temperature 36.9 ??C (98.4 ??F) 02/22/2021 9:50 PM ES T Respiratory Rate 24 02/22/2021 9:50 PM EST Oxygen Saturation 100% 02/22/2021 9:50 PM EST Inhaled Oxygen Concentration - - Weight 84.9 kg (187 lb 2.7 oz) 02/22/2021 9:50 P M EST Height - - Body Mass Index - - Plan of Treatment Health Maintenance Due Date Last Done Comments HIV screening 10/07/2000 Hepatitis C screening 10/07/2005 Tetanus adult (Td q 10,TDAP once) 2007 Cervical cancer screening 10/07/2008 Covid-19 vaccine series ( - 2023- season) 2023 Influenza vaccine 11/13/2024 RSV Immunization (1 - 1-dose 75+ series) 10/07/2062 Meningococcal Vaccine Aged Out No pelon marcus eligible based on patient's age to complete this topic Pneumococcal Vaccine (2 - 49 years) Aged Out No longer eligible based on patient's age to complete this topic Insurance [employer]CIAL [employer]IC COMM[employer]CIAL [employer]IC COMM[employer]IC Care Teams Getterer Relationship Specialty Start Date End Date Roya Newell NP PCP - General 02/22/21
--- OUTSIDE RECORDS SUMMARY | 2024-06-20 15:31 | XMS_ITS | Patient Health Record ---
Author Organization [facility] Address [address] [place] [address] Care Team Providers Care Sales Professional Name Role Phone MEEK ROPER Unavailable [phone] Allergies No Known Allergies Reason For Referral No Information Medications Medication SIG (Take, Route, Fr equency, Duration) Notes Start Date End Date Status Prometrium 200 MG 2 capsules at bedtim e Orally Once a day for 12 day(s) 11/28/2020 Active Social History Tobacco Use: Social History Observation Description Date Details (start date - stop date) Never Smoker NA - NA Tobacco Use/Smoking Question Answer Notes Are you a nonsmoker Alcohol Screen (Audit-C) Question Answer Notes Did you have a drink contain ing alcohol in the past year? Yes How often did you have a dri nk containing alcohol in the past year? 2 to 3 times a week (3 points) How many drinks did you have on a typical day when you were drinking in the past year? 3 or 4 drinks (1 point) How often did you have 6 or more drinks on one occasion in the past year? Less than monthly (1 point) Points 5 Interpretation Positive Problems Problem Type SNOMED Code ICD Code Onset Dates Problem Status W/U Status Risk Notes Problem Irregular menstruation (72008619) Irregular menstruation, unspecified (N92.6) Active confirmed Problem Abnormal uterine bleeding ([id number]) Abnormal uterine and vaginal bleeding, unspecified (N93.9) Active confirmed Plan Of Treatment Pending Test Test Name Order Date Sonohysterogram 10/17/2020 Test, Urine 10/17/2020 Test, Urine 11/22/2020 FSH 11/28/2020 LH 11/28/2020 TSH WITH REFLEX TO FT4 11/28/2020 PROLACTIN WITH REFLEX TO MONOMERIC 11/28 Insurance Providers Payer Name Payer Address Payer Phone Subscriber Number Group Number Insured Name Patient Relationship to Insured Coverage Start Date Coverage End Date [facility] [address] [facility] [place] [id number] KRISTAL PENDLETON Self - patient is the insured Medical (General) History Surgical History Surgery Date(Month/Year) [place] Teeth Removed 06/2011 Hospitalization History Reason Date(Month/Year)
== END 2024-06-20 13:50 | disposition home or self-care (01) ==
LOC: HO.HMCFM 12:52
PROVIDERS: PCP Nurse Practitioner Family; Visit Provider Nurse Practitioner Family
DX: L60.0 Ingrowing nail (principal); I10 Essential (primary) hypertension; I48.0 Paroxysmal atrial fibrillation; E78.5 Hyperlipidemia, unspecified; E55.9 Vitamin D deficiency, unspecified; Z68.34 Body mass index [BMI] 34.0-34.9, adult; E66.811 Obesity, class 1; E66.09 Other obesity due to excess calories; F41.1 Generalized anxiety disorder

== ENCOUNTER → 2024-06-20 12:51 | Outpatient (BNVA) | payer OTHER, SELFPAY | PROVIDERS: PCP Nurse Practitioner Family; Visit Provider Nurse Practitioner Family | DX: L60.0 Ingrowing nail (principal); I10 Essential (primary) hypertension; I48.0 Paroxysmal atrial fibrillation; E78.5 Hyperlipidemia, unspecified; E55.9 Vitamin D deficiency, unspecified; F41.1 Generalized anxiety disorder; E66.811 Obesity, class 1; E66.09 Other obesity due to excess calories; Z68.34 Body mass index [BMI] 34.0-34.9, adult; Z79.899 Other long term (current) drug therapy | CPT/HCPCS: 96127 ==

== ENCOUNTER 2024-09-22 09:04 | Outpatient (AMB) | payer OTHER, SELFPAY ==
--- NOTE | 2024-09-22 09:10 | A.OFFPC_ITS ---
Vital Signs 09/22/24 09:13 Height 5 ft 4 in Weight 202 lb 6 oz BMI 34.7 BP 124/70 Blood Pressure Location Lt brachial Position Sitting Respiration 13 Pulse 78 Pulse Source Pulse Oximeter Temp 96.9 F Temp Source Oral Pulse Oximetry (%) 97 Oxygen Delivery Method Room Air Intake Visit Reasons: September CPE Intake Note: CPE Superintendent Stations Required: No Allergies No Known Allergies Allergy (Verified 09/22/24 09:33) Medication List - Last Reconciled 09/22/24 by AMADOU Frederick- bupropion HCl XL (Wellbutrin XL) 300 mg PO QAM cholecalciferol (vitamin D3) 50 mcg PO DAILY diltiazem HCl ER 120 mg PO BID 90 days escitalopram oxalate (Lexapro) 20 mg PO DAILY losartan 25 mg PO DAILY Tobacco use date assessed: 09/22/24 Dental Screening Dental Screen Date: 09/22/24 Did you have a dental visit in the last 12 months?: Yes Did you have a dental problem in the last 6 months where you did not have access to dental care?: No Was dental information given to patient?: Patient has dentist HPI HPI Comments History of Present Illness Details 38-year-old female with paroxysmal AFib Status post cardioversion May 2021, hypertension, PETAR, dilated ascending aorta, Vit D def, Obesity, family hx of skin ca Family Hx: no changes. Reports hx of skin cancer and cardiac issues. Dad w/ stroke Mom of PE age 62 in age 2021 Brother of drug overdose 2021 Social: Works as a teacher Health Maintenance: Needs annual echo surveillance last one 11/2023 Pap smear had appt in October 2023; last pap 2021 WNL. Immunizations: Declines flu shot. Tdap 04/14/23 Specialist [facility] [place] - cleared Derm annual skin checks June had a spot, negative Optho contacts, annual exams History of Present Illness - The patient is a 38-year-old female pr esenting for a complete physical exam and medication management. - History of paroxysmal atrial fibrillat ion with previous cardioversion. - Diagnosed with essential hypertension. - Diagnosed with generalized anxiety dis order on Escitalopram. - Dilation of the ascending aorta; under cardiological observation. - History of Vitamin D deficiency; on vi tamin D supplements. - Obesity with BMI of 34.7; current sybil ht management reviewed. - Father had an ischemic stroke with car otid artery blockage. 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 - Lifestyle: Engages in summer camp acti vities; experiences extended work hours. - Nutrition: Stress-eating noted during recent family health stressors. Health Maintenance - Annual cardiology follow-up scheduled for November. - Regular dermatology visits due to fami ly history of skin cancer, next in February. - Regular annual eye examinations due to contact lens use. Review of Systems - Cardiovascular: Denies chest pain, nestor rtness of breath. - Gastrointestinal: Denies pain or tende rness in the abdomen. - Musculoskeletal: Reports swelling in a nkles and feet, resolved. - Neurological: Denies anxiety, denies r ecent palpitations. Physical Exam General: Well developed, well nourished, in no acute distress. Appears stated age. Head: Normocephalic, atraumatic. Eyes: Pupils are equal, round and reactive to light and accommodation. Conjunctivae are clear. Vision grossly normal. Ears: TMs clear AU, EACS WNL Nose: Patent, without discharge. Neck: Supple, no adenopathy or thyromegaly. Breast: Edu on SBE Lungs: Clear to auscultation bilaterally. No rales, rhonchi or wheeze noted. Good air flow in all green. Heart: Regular rate and rhythm. No murmurs, click, rubs or gallops are noted. Abdomen: Bowel sounds present in all quadrants. The abdomen is soft, nontender, with no masses or organomegaly noted. No hernias are noted. : Deferred. Reviewed recommendations for routine CREEL HAND Pulses: Peripheral pulses are equal and palpable bilaterally. Extremities: No clubbing, cyanosis noted. Patient reported swelling in both ankles and tops of feet for a few weeks, which has resolved. Neurologic: Gait and station normal. Cranial Nerves 2-12 intact. Motor strength grossly symmetrical and intact. No sensory loss. Balance normal. Skin: No rashes, ulcers, or lesions noted. Turgor is good. Skin color is good. Hair and nails are without abnormalities. Psych: Normal eye contact, affect and mood appropriate, and normal interactions. Patient is alert and appropriate to context. Mood is reported as good, no anxiety or palpitations noted. Results Pending Discussion Notes During the visit, I reviewed the current management of the patient's health issues, including paroxysmal atrial fibrillation, essential hypertension, anxiety, and obesity. We discussed the ongoing use of medications such as Escitalopram and Wellbutrin and the consideration of introducing Naltrexone to aid with weight management, forming the compound medication Contrave. I informed the patient of the risks associated with opioid antagonists such as Naltrexone, particularly in situations requiring opioid use for pain control. The patient understands the need to stop if surgery is needed. We arranged for follow-up labs to evaluate apolipoproteins considering her father's stroke history. Refills for Losartan, Diltiazem, and Escitalopram were processed, ensuring continuity of care. I encouraged the patient to reach out with any concerns and scheduled follow-up in six months. Assessment and Plan 1. Paroxysmal Atrial Fibrillation - Continue monitoring, cardiology follow -up set. 2. Essential Hypertension - Refilled Losartan and Diltiazem, liborio nue monitoring. 3. Generalized Anxiety Disorder - Continue Escitalopram, observe for sym ptom change. 4. Dilation of the Ascending Aorta - Ongoing cardiology surveillance. 5. Vitamin D Deficiency - Continue supplementation. 6. Obesity - Add Naltrexone to Wellbutrin for weigh t management. 7. Stroke Risk - Order apolipoprotein labs for assessme nt. Patient Instructions - Take your prescribed medications as di rected. - Monitor your symptoms and note any sig nificant changes. - Contact the clinic if experiencing jose luis [address] pain or shortness of breath. - Follow up with cardiology in November . - Attend your lab appointment today to c omplete your bloodwork. - Maintain your scheduled health and eye examinations. RT0 6 MO ROUTINE FU ON HTN/MOOD/WT LOSS, SOONER PRN Consent Patient was informed and verbally consented to the use of an ambient scribe for clinic note documentation during this visit. An additional 20 minutes was spent addressing the problem(s) noted at todays visit. This includes time spent before the visit reviewing the chart, time spent during the visit, and time spent after the visit on documentation reviewing laboratory results, diagnostic imaging, medications, performing a medically necessary evaluation, counseling on diagnoses, care coordination, ordering appropriate tests, ordering appropriate medications, review of tests performed by other providers, reporting test results with the patient, communication with other healthcare providers. [facility] Medical History (Updated 09/22/24 @ 09:49 by Keli Al, FARM EQUIPMENT MAINTENANCE SUPERVISOR-) Afib Hypertension PAF (paroxysmal atrial fibrillation) Family History Mother Hypertension Pulmonary embolism Father Hypertension Social History Household Members: Spouse Both parents involved: No Caregiver staying overnight: No Housing: House Alcohol intake: current Patient Tobacco Use Status: Never used Tobacco e-Cigarette/Vaping Use: Never Used Second Hand Smoke Exposure: No Substance Use Type: Marijuana service: No Current occupational status: employed Current occupation: Teacher at [employer] Cognitive needs: No Hearing needs: No Vision needs: No Questionnaire PHQ-9 Over the last 2 weeks, how often have you been bothered by any of the following problems? 1. Little interest or pleasure in doing things: not at all 2. Feeling down, depressed, or hopeless: not at all 3. Trouble falling or staying asleep, or sleeping too much: not at all 4. Feeling tired or having little energy: not at all 5. Poor appetite or overeating: not at all 6. Feeling bad about yourself - or that you are a failure or have let yourself or your family down: not at all 8. Moving or speaking so slowly that other people could have noticed. Or the opposite - being so fidgety or restless that you have been moving around a lot more than usual: not at all 9. Thoughts that you would be better off or of hurting yourself in some way: not at all Depression Screening Interpretation: Negative Depression Screening Done: Yes 93123 - PHQ-9 Billing: Yes Source: Developed by Drs. Pete Sue, Hiwot Hopper, Lucas Aguilar and colleagues, with an educational lance from [employer]. Thrive Questionnaire Date Thrive assessed: 09/22/24 I am a: Patient What is your living situation today?: I have a steady place to live Within the past 12 months, did the food you bought not last and you didn't have the money to get more?: Never true Within the past 12 months, did you worry whether your food would run out before you got money to buy more?: Never true Do you have trouble paying for medicines?: No Do you have trouble getting transportation to medical appointments?: No Do you have trouble paying your heating and electricity bill?: No Do you have trouble taking care of your child, family member or friend?: No Do you have trouble with day-to-day activities such as bathing, preparing meals, shopping, managing finances, etc.?: No Are you currently unemployed and looking for a job?: No Are you interested in more education?: No Please select the resources that you would like help with: None Currently or been in a relationship where the following occur: No concerns reported THRIVE Score: 0 PETAR-7 AMB Questionnaire PETAR-7 Date PETAR - 7 assessed: 09/22/24 Feeling nervous, anxious, or on edge: 0 = Not at all Not being able to stop or control worryin = Not at all Worrying too much about different things: 0 = Not at all Trouble relaxin = Not at all Being so restless that it is hard to sit still: 0 = Not at all Becoming easily annoyed or irritable: 0 = Not at all Feeling afraid as if something awful might happen: 0 = Not at all Total PETAR-7 score (0-4 normal; 5-9 mild; 10-14 moderate; 15-21 severe): 0 Source: Developed by Drs. Pete Sue, Hiwot Hopper, Lucas Aguilar and colleagues, with an educational lance from [employer]. PETAR-7 Assessment Billing PETAR-7 Assessment Tool: PETAR-7 Assessment 42528 Physical exam (Primary Care) Vital Signs: Last Vital Signs Temp 96.9 F 09/22/24 09:13 Pulse 78 09/22/24 09:13 Resp 13 09/22/24 09:13 BP 124/70 09/22/24 09:13 Pulse Ox 97 09/22/24 09:13 Oxygen Delivery Method Room Air 09/22/24 09:13 BMI result Body Mass Index 34.7 BMI Assessment/Plan discussion: High BMI High, discussed plan: lifestyle Tobacco/Smoking Status: Tobacco use Status Tobacco use date assessed 09/22/24 09/22/24 09:14 Patient Tobacco Use Status Never used Tobacco 09/22/24 09:14 e-Cigarette/Vaping Use Never Used 09/22/24 09:14 Depression Screening Interpretation: Negative Thrive Assessment: Date of Thrive Assessment Date Thrive assessed 09/22/24 09/22/24 09:14 Currently or been in a relationship where the following occur: No concerns reported Coding Level of Care Code Est Pt Level 3 (67706) Est Pt Prev Care 18-39y(71775) Diagnoses Normal physical exam Z00.00 PETAR (generalized anxiety disorder) F41.1 Primary hypertension I10 Hypertension type: primary hypertension PAF (paroxysmal atrial fibrillation) I48.0 Mild dilation of ascending aorta I77.810 Borderline hyperlipidemia E78.5 Class 1 obesity due to excess calories with serious comorbidity and body mass index (BMI) of 34.0 to 34.9 in adult E66.811; E66.09; Z68.34 Obesity type: due to excess calories Serious obesity comorbidity presence: with serious comorbidity Vitamin D deficiency E55.9 Family history of stroke Z82.3 Additional Codes PETAR-7 Assessment Billing - PETAR-7 Assessment Tool: PETAR-7 Assessment 95527 ([id number]) PHQ-9 - 60267 - PHQ-9 Billing: Yes ([id number]) Assessment & Plan Assessment & Plan (1) Normal physical exam: Onset Date: ~09/22/24 Code(s): Z00.00 - Encounter for general adult medical examination without abnormal findings Category: Medical (2) PETAR (generalized anxiety disorder): Code(s): F41.1 - Generalized anxiety disorder Category: Medical (3) Hypertension: Code(s): I10 - Essential (primary) hypertension Category: Medical Qualifiers: Hypertension type: primary hypertension Qualified Code(s): I10 - Essential (primary) hypertension (4) PAF (paroxysmal atrial fibrillation): Code(s): I48.0 - Paroxysmal atrial fibrillation Category: Medical (5) Mild dilation of ascending aorta: Code(s): I77.810 - Thoracic aortic ectasia Category: Medical (6) Borderline hyperlipidemia: Code(s): E78.5 - Hyperlipidemia, unspecified Category: Medical (7) Class 1 obesity with body mass index (BMI) of 34.0 to 34.9 in adult: Comment: BMI 34 with PAF and HTN Code(s): E66.811 - Obesity, class 1; Z68.34 - Body mass index [BMI] 34.0-34.9, adult Category: Medical Qualifiers: Obesity type: due to excess calories Serious obesity comorbidity presence: with serious comorbidity Qualified Code(s): E66.811 - Obesity, class 1; E66.09 - Other obesity due to excess calories; Z68.34 - Body mass index [BMI] 34.0-34.9, adult (8) Vitamin D deficiency: Comment: 05/2023 total 17. Vit D3 2000IU Qevening, Code(s): E55.9 - Vitamin D deficiency, unspecified Category: Medical (9) Family history of stroke: Comment: Dad age 68, ischemic Code(s): Z82.3 - Family history of stroke Category: Medical Plan . Orders: Orders Apolipoprotein A1 Today Z82.3 - Family history of stroke Apolipoprotein B Today Z82.3 - Family history of stroke CRP High Sensitivity Today Z82.3 - Family history of stroke Medications: New bupropion HCl SR (Wellbutrin SR) 150 mg PO BID 180 tabs 1RF naltrexone 25 mg (1/2 x 50 mg) PO BID 45 tabs 1RF Refilled losartan 25 mg PO DAILY 90 tabs 3RF diltiazem HCl ER 120 mg PO BID 180 caps 3RF 90 days I10 - Essential (primary) hypertension escitalopram oxalate (Lexapro) 20 mg PO DAILY 90 tabs 1RF Discontinued bupropion HCl XL (Wellbutrin XL) Discontinued Reason: Doctor's Order 300 mg PO QAM 90 tabs 0RF Patient Instructions: Health screenings for women You should visit your health care provider from time to time, even if you are healthy. The purpose of these visits is to: Screen for medical issues Assess your risk for future medical problems Encourage a healthy lifestyle Update vaccinations and other preventive care services Help you get to know your provider in case of an illness Information Even if you feel fine, you should still see your provider for regular checkups. These visits can help you avoid problems in the future. For example, the only way to find out if you have high blood pressure is to have it checked regularly. High blood sugar and high cholesterol levels also may not have any symptoms in the early stages. A simple blood test can check for these conditions. There are specific times when you should see your provider or receive specific health screenings. The [place] Preventive Services Task Force publishes a list of recommended screenings. Below are screening guidelines for women ages 18 to 39. BLOOD PRESSURE SCREENING Your blood pressure should be checked at least once every 3 to 5 years if: Your blood pressure is in the normal range (top number less than 120 mm Hg and bottom number less than 80 mm Hg) You don't have risk factors for high blood pressure Ask your provider if you need your blood pressure checked more often if: The top number is 120 to 129 mm Hg or the bottom number is 70 to 79 mm Hg You have diabetes, heart disease, kidney problems, are overweight, or have certain other health conditions You have a first-degree relative with high blood pressure You are Black You had high blood pressure during a If the top number is 130 mm Hg or greater or the bottom number is 80 mm Hg or greater, this is considered stage 1 hypertension. Schedule an appointment with your provider to learn how you can reduce your blood pressure. Watch for blood pressure screenings in your area. Ask your provider if you can stop in to have your blood pressure checked. BREAST CANCER SCREENING Experts do not agree about the benefits of breast self-exams in finding breast cancer or saving lives. Talk to your provider about what is best for you. A screening mammogram is not recommended for most women under age 40. Your provider may discuss and recommend mammograms, MRI scans, or ultrasounds if you have an increased risk for breast cancer, such as: A mother or sister who had breast cancer at a young age (most often starting screening earlier than the age the close relative was diagnosed) You carry a high-risk genetic marker CERVICAL CANCER SCREENING Cervical cancer screening should start at age 21 years unless your provider advises otherwise. After the first test: Women ages 21 through 29 should have a Pap test every 3 years. Exoprts do not agree on whether HPV testing is recommended for this age group. Women ages 30 through 65 should be screened with either a Pap test every 3 years or the HPV test every 5 years or both tests every 5 years (called cotesting ). Women who have been treated for precancer (cervical dysplasia) should continue to have Pap tests for 20 years after treatment or until age 65, whichever is longer. If you have had your uterus and cervix removed (total hysterectomy), and you have not been diagnosed with cervical cancer or precancer (high grade cervical neoplasia), you do not need cervical cancer screening. CHOLESTEROL SCREENING Cholesterol screening should begin at: Age 45 for women with no known risk factors for coronary heart disease Age 20 for women with known risk factors for coronary heart disease Repeat cholesterol screening should take place: Every 5 years for women with normal cholesterol levels More often if changes occur in lifestyle (including weight gain and diet) More often if you have diabetes, heart disease, kidney problems, or certain other conditions DIABETES SCREENING You should be screened for diabetes starting at age 35 and then repeated every 3 years if you have no risk factors for diabetes. Screening may need to start earlier and be repeated more often if you have other risk factors for diabetes, such as: You have a first degree relative with diabetes. You are overweight or have obesity. You have high blood pressure, prediabetes, or a history of heart disease. Screening for diabetes should be done if you are planning to become and you are overweight and have other risk factors such as high blood pressure. DENTAL EXAM Go to the dentist once or twice every year for an exam and cleaning. Your dentist will evaluate if you need more frequent visits. EYE EXAM Have an eye exam every 5 to 10 years before age 40. If you have vision problems, have an eye exam every 2 years or more often if recommended by your provider. You should have an eye exam that includes an examination of your retina (back of your eye) at least every year if you have diabetes. IMMUNIZATIONS Commonly needed vaccines include: Flu shot: get one every year. COVID-19 vaccine: ask your provider what is best for you. Tetanus-diphtheria and acellular pertussis (Tdap) vaccine: have one at or after age 19 as one of your tetanus-diphtheria vaccines if you did not receive it as an adolescent. Tetanus-diphtheria: have a booster (or Tdap) every 10 years. Varicella vaccine: receive 2 doses if you never had chickenpox or the varicella vaccine. Hepatitis B vaccine: receive 2, 3, or 4 doses, depending on your exact circumstances. Measles, mumps, and rubella (MMR) vaccine: receive 1 to 2 doses if you are not already immune to MMR. Your provider can tell you if you are immune. Ask your provider about the human papillomavirus (HPV) vaccine if: You have not received the HPV vaccine in the past You have not completed the full vaccine series (you should catch up on this shot) Ask your provider if you should receive other immunizations if you have certain health problems that increase your risk for some diseases such as pneumonia. INFECTIOUS DISEASE SCREENING Women who are sexually active should be screened for chlamydia and gonorrhea up until age 25. Women 25 years and older should be screened for chlamydia and gonorrhea if at high risk. Screening for hepatitis C: All adults ages 18 to 79 should get a one-time test for hepatitis C. people should be screened at every . Screening for human immunodeficiency virus (HIV): All people ages 15 to 65 should get a one-time test for HIV. Depending on your lifestyle and medical history, you may also need to be screened for infections such as syphilis and HIV, as well as other infections. PHYSICAL EXAM All adults should visit their provider from time to time, even if they are healthy. The purpose of these visits is to: Screen for disease Assess your risk of future medical problems Encourage a healthy lifestyle Update your vaccinations and other preventive care services Maintain a relationship with a provider in case of an illness Your height, weight, and BMI should be checked at every exam. During your exam, your provider may ask you about: Depression and anxiety Diet and exercise Alcohol and tobacco use Safety issues, such as using seat belts, smoke detectors, and intimate partner violence Your medicines and risk for interactions SKIN SELF-EXAM Your provider may check your skin for signs of skin cancer, especially if you're at high risk, such as if you: Have had skin cancer before Have close relatives with skin cancer Have a weakened immune system OTHER SCREENING Talk with your provider about colon cancer screening if you have a strong family history of colon cancer or polyps, or if you have had inflammatory bowel disease or polyps yourself. Routine bone density screening of women under 40 is not recommended.
[2024-09-22 09:13] VITALS: BP 124/70; PULSE 78; RESP 13; TEMP 36.1; O2SAT 97; BMI 34.7
--- OUTSIDE RECORDS SUMMARY | 2024-09-22 09:19 | XMS_ITS | Clinical Summary ---
Author Organization [address] Address [address] [place] [address] Phone Care Team Providers Care Factory Helper Name Role Phone Roya Newell NP Primary Care Provider [phone] Allergies No known active allergies Social History [...] 94 02/22/2021 9:50 PM EST Temperature 36.9 C (98.4 F) 02/22/2021 9:50 PM EST Respiratory Rate 24 02/22/2021 9:50 PM EST [...] Cervical cancer screening 10/07/2008 Covid-19 vaccine series (2023- season) 2023 Influenza vaccine 11/13/2024 RSV Immunization (1 - 1-dose 75+ series) 10/07/2062 Meningococcal Vaccine Aged Out No pelon marcus eligible based on patient's age to complete this topic Pneumococcal Vaccine (2 - 49 years) Aged Out No longer eligible based on patient's age to complete this topic Insurance COMMERCIAL GENERIC COMMERCIAL GENERIC COMMERCIAL GENERIC Care Teams Factory Helper Relationship Specialty Start Date End Date Roya Newell NP PCP - General 12/11/21
--- OUTSIDE RECORDS SUMMARY | 2024-09-22 09:20 | XMS_ITS | Patient Health Record ---
Author Organization [facility] Address [address] [place] [address] Care Team Providers Care Distribution Center Administrator Name Role Phone MEEK ROPER Unavailable [phone] Allergies No Known Allergies Reason For Referral No Information Medications Medication SIG (Take, Route, Fr equency, Duration) Notes Start Date End Date Status Prometrium 200 MG 2 capsules at bedtim e Orally Once a day; Duration: 12 day(s) 11/28/2020 Activ e Social History Tobacco Use: Social History Observation [...] W/U Status Risk Notes Problem Irregular menstruation (52848635) Irregular menstruation, unspecified (N92.6) Active confirmed Problem Abnormal uterine bleeding ([id number]) Abnormal uterine and vaginal bleeding, unspecified (N93.9) [...] Insured Coverage Start Date Coverage End Date [facility] [address] [facility] [place] [id number] KRISTAL PENDLETON Self - patient is the insured Medical (General) History Surgical History Surgery Date(Month/Year) [place] Teeth Removed 06/2011 Hospitalization History Reason Date(Month/Year)
--- OUTSIDE RECORDS SUMMARY | 2024-09-22 09:20 | XMS_ITS ---
Author Name [facility] Organization Unknown Encounters Encounter Type Encounter Reason Primary Diagnosis Location Date Emergency Abdominal Pain [facility] 1 04/26/2020 Care Team Organization Name Specialty Phone Email Start Date End Da te [facility] TAN MARTIN Primary Care 1 04/26/2020 02/23/2021
== END 2024-09-22 09:54 | disposition home or self-care (01) ==
LOC: HO.HMCFM 09:05
PROVIDERS: PCP Nurse Practitioner Family; Visit Provider Nurse Practitioner Family
DX: Z00.00 Encounter for general adult medical examination without abnormal findings (principal); I48.0 Paroxysmal atrial fibrillation; E66.811 Obesity, class 1; Z68.34 Body mass index [BMI] 34.0-34.9, adult; F41.1 Generalized anxiety disorder; I10 Essential (primary) hypertension; E78.5 Hyperlipidemia, unspecified; I77.810 Thoracic aortic ectasia; E55.9 Vitamin D deficiency, unspecified; Z82.3 Family history of stroke

== ENCOUNTER → 2024-09-22 09:04 | Outpatient (BNVA) | payer OTHER, SELFPAY | PROVIDERS: PCP Nurse Practitioner Family; Visit Provider Nurse Practitioner Family | DX: Z00.00 Encounter for general adult medical examination without abnormal findings (principal); I10 Essential (primary) hypertension; F41.1 Generalized anxiety disorder; E55.9 Vitamin D deficiency, unspecified; I48.0 Paroxysmal atrial fibrillation; I77.810 Thoracic aortic ectasia; E78.5 Hyperlipidemia, unspecified; E66.811 Obesity, class 1; E66.09 Other obesity due to excess calories; Z82.3 Family history of stroke; Z68.34 Body mass index [BMI] 34.0-34.9, adult | CPT/HCPCS: 96127 ==

== ENCOUNTER 2024-09-22 10:03 | Outpatient (REF) | payer OTHER, SELFPAY ==
[2024-09-22 11:45] LABS: Hematocrit 38.6 % (37.0-47.0); Hemoglobin 14.0 g/dl (12.0-16.0); Mean Corpuscular HGB Conc 36.3 g/dl (31.0-35.0); Mean Corpuscular Hemoglobin 33.1 pg (27.0-33.0); Mean Corpuscular Volume 91.3 fL (80.0-98.0); NRBC Abs Auto 0.000 X10*3/uL (0.0-0.012); NRBC Pct Auto 0.0 /100WBC (0.0-0.2); Platelet Count 254 X10*3/uL (160-400); Red Blood Count 4.23 X10*6/uL (4.20-5.50); White Blood Count 7.4 X10*3/uL (4.8-10.8)
[2024-09-22 12:02] LABS: Hemoglobin A1C 100.2166 umol/L; Total Hemoglobin (HGBA1C) 3782.7363 umol/L
[2024-09-22 12:20] LABS: Alanine Aminotransferase 31 U/L (0-31); Albumin Level 4.5 g/dL (3.5-5.0); Alkaline Phosphatase 52 U/L (39-117); Anion Gap 12 (12-20); Aspartate Amino Transferase 21 U/L (5-31); Blood Urea Nitrogen 12 mg/dL (9-16); Calcium 9.2 mg/dL (8.4-10.2); Carbon Dioxide 26 mmol/L (22-29); Chloride 104 mmol/L (96-108); Cholesterol 205 mg/dL (<200); Estimated Glomerular Filt Rate > 60; HDL Cholesterol 47 mg/dL (>40); Potassium 4.0 mmol/L (3.3-5.1); Sodium 138 mmol/L (135-145); Total Protein 6.9 g/dL (6.5-8.0); Triglycerides 106 mg/dL (<150)
[2024-09-22 12:25] LABS: Ferritin 280 ng/mL (10-122)
[2024-09-22 12:41] LABS: Folate 13.4 ng/mL (> or = 4.0); Vitamin B12 593 pg/mL (200-900)
== END 2024-09-22 10:04 | disposition home or self-care (01) ==
LOC: HO.WFDLDS 10:03
PROVIDERS: Visit Provider Nurse Practitioner Family
DX: I10 Essential (primary) hypertension (principal); E78.5 Hyperlipidemia, unspecified; E55.9 Vitamin D deficiency, unspecified; I48.0 Paroxysmal atrial fibrillation; Z82.3 Family history of stroke; Z13.1 Encounter for screening for diabetes mellitus
CPT/HCPCS: 36415; 80053; 80061; 82043; 82172; 82306; 82570; 82607; 82728; 82746; 83036; 84443; 85027; 86141

== ENCOUNTER → 2024-11-15 14:43 | Outpatient (REF) | payer OTHER, SELFPAY ==
--- NOTE | 2024-11-15 14:45 | CA_ITS ---
Transthoracic Echocardiogram Patient (Last, First, Middle): Mckenna Dumas, Gender: F Date of : 1985 Age: 39 Procedure Date: 11/15/2024 Procedure Type: Transthoracic Echocardiogram Location: OP Height: 152.4 cm Weight: 86.18 kg BSA: 1.83 m2 Heart Rate: bpm BP: 130 / 80 mmHg Suit Maker: TO/RC Referring MD: Thomas Ardon MD Core Composer Machine Tender: Luis Corea MD Symptoms: I77.810 - Thoracic aortic ectasia Study Quality: Adequate ECG Rhythm: Sinus Conclusions: - Mild dilatation of ascending aorta Findings Great Vessels There is mild dilatation of the ascending aorta measuring 4.10 cm. On suprasternal view there appears to be some narrowing just beyond the left subclavian artery, although this could be an angle of view although mild coarctation can not be entirely ruled out. Consider chest CTA Prior Study Comparison No significant change compared to prior study dated: 11/16/2023. consider CTA Measurements Great Vessels Aorta Ao Asc: 4.10 2.1-3.4 cm Ao Arch: 3.00 Updated in Other Vendor System with Status of Final Luis Corea MD electronically signed on 11/16/2024 9:16:52 AM with status of Final
--- OUTSIDE RECORDS SUMMARY | 2024-11-15 17:01 | XMS_ITS | Patient Health Record ---
Author Organization [facility] Address [address] [place] [address] Care Team Providers Care Safety Associate Name Role Phone MEEK ROPER Unavailable [phone] Allergies No Known Allergies Reason For Referral [...] W/U Status Risk Notes Problem Irregular menstruation ([id number]) Irregular menstruation, unspecified (N92.6) Active confirmed Problem Abnormal uterine bleeding ([id number]) Abnormal uterine and vaginal bleeding, unspecified (N93.9) [...] Insured Coverage Start Date Coverage End Date [facility] [address] [facility] [place] [id number] KRISTAL PENDLETON Self - patient is the insured Medical (General) History Surgical History Surgery Date(Month/Year) [place] Teeth Removed 06/2011 Hospitalization History Reason Date(Month/Year)
--- OUTSIDE RECORDS SUMMARY | 2024-11-15 17:01 | XMS_ITS | Clinical Summary ---
Author Organization [address] Address [address] [place] [address] Phone Care Team Providers Care Mutual Fund Analyst Name Role Phone Roya Newell NP Primary Care Provider [phone]- [phone] Allergies No known active allergies Social History [...] cancer screening 10/07/2008 Covid-19 vaccine series ( season) 2024 Influenza vaccine 11/13/2024 RSV Immunization (1 - 1-dose 75+ series) 10/07/2062 Meningococcal B Vaccine Aged Out No l onger eligible based on patient's age to complete this topic Meningococcal Vaccine Aged Out No pelon marcus eligible based on patient's age to complete this topic Pneumococcal Vaccine (2 - 49 years) Aged Out No longer eligible based on patient's age to complete this topic Insurance COMMERCIAL GENERIC COMMERCIAL GENERIC COMMERCIAL GENERIC Care Teams Mutual Fund Analyst Relationship Specialty Start Date End Date Roya Newell NP PCP - General 02/22/21
== END ==
LOC: HO.CARD 14:43
PROVIDERS: PCP Nurse Practitioner Family; Visit Provider Internal Medicine
DX: I77.810 Thoracic aortic ectasia (principal)
CPT/HCPCS: 93308

== ENCOUNTER → 2024-11-15 14:45 | Outpatient (BNV) | payer OTHER, SELFPAY | PROVIDERS: PCP Nurse Practitioner Family; Visit Provider Internal Medicine Cardiovascular Disease | DX: I77.810 Thoracic aortic ectasia (principal) | CPT/HCPCS: 93308 ==

== ENCOUNTER 2024-11-23 14:16 | Outpatient (AMB) | payer OTHER, SELFPAY ==
--- NOTE | 2024-11-23 14:20 | MHC.OFFVIS ---
Vital Signs 11/23/24 14:24 Height 5 ft 4 in Weight 201 lb 0.985 oz BMI 34.5 BP 120/90 H Blood Pressure Location Lt brachial Position Sitting Pulse 72 Pulse Source Monitor Intake Visit Reasons: 1 year follow-up after echo Agricultural Education Instructor Required: No Accompanied by: Self / Same As Patient Allergies No Known Allergies Allergy (Verified 09/22/24 09:33) Medication List - Last Reconciled 11/23/24 by Thomas Ardon MD atorvastatin (Lipitor) 20 mg PO BEDTIME bupropion HCl SR (Wellbutrin SR) 200 mg PO Q12H cholecalciferol (vitamin D3) 50 mcg PO DAILY diltiazem HCl ER 120 mg PO BID 90 days escitalopram oxalate (Lexapro) 20 mg PO DAILY losartan 25 mg PO DAILY naltrexone 25 mg (1/2 x 50 mg) PO BID ondansetron HCl 4 mg PO Q8H PRN 3 days HPI Comments Details: Mckenna returns for follow-up. T To recall, in 2021, patient had been on vacation and it seems that she had alcohol consumption during that time. When she returned back from vacation, she states she went into atrial fibrillation. That led to hospitalization at [facility]. Initially, IV Cardizem was tried but subsequently, it seems that due to lack of response to medications she underwent synchronized cardioversion. Then put on short-term anticoagulation for a few weeks and nothing since that time. She also has high blood pressure. Additionally gets anxiety/panic type episodes. In those instances, blood pressures have been almost 200 mm Hg. Currently on diltiazem/losartan. She also has mildly dilated ascending aorta. Could be related to blood pressure issues. No other cardiac history in the past apart from a single episode of atrial fibrillation. Otherwise, there is a history of alcohol consumption on Fridays or Saturdays when she drinks about 3 beers or so. No major cardiac issues in family. Mother because of pulmonary embolism that apparently happened after back surgery. She was in her 60s. Over the last year, she states she has been doing good. No new concerns. [facility] Medical History Afib PAF (paroxysmal atrial fibrillation) Hypertension Family History Mother Hypertension Pulmonary embolism Father Hypertension Social History Household Members: Spouse Both parents involved: No Caregiver staying overnight: No Housing: House Alcohol intake: current Patient Tobacco Use Status: Never used Tobacco e-Cigarette/Vaping Use: Never Used Second Hand Smoke Exposure: No Substance Use Type: Marijuana service: No Current occupational status: employed Current occupation: Teacher at [employer] Cognitive needs: No Hearing needs: No Vision needs: No Review of Systems Const Denies chills, Denies fatigue, Denies fever(s), Denies frequent falls, Denies weakness, Denies weight gain and Denies weight loss ENT Denies dizziness Card Denies chest pain, Denies leg edema, Denies lightheadedness, Denies palpitations, Denies dyspnea and Denies dyspnea on exertion Resp Denies cough, Denies dyspnea and Denies dyspnea on exertion GI Denies hematochezia Musc Denies abnormal gait, Denies muscle weakness, Denies numbness, Denies radiating pain into limb and Denies tingling Neuro Denies abnormal gait, Denies dizziness, Denies frequent falls, Denies numbness, Denies tingling and Denies weakness Endo Denies fatigue and Denies palpitations Physical Exam Vital Signs: Last Vital Signs Pulse 72 11/23/24 14:24 BP 120/90 H 11/23/24 14:24 BMI result Body Mass Index 34.5 Const General: comfortable and no acute distress Orientation/consciousness: patient oriented x3 HEENT Other: Unremarkable Head: Yes normal to inspection Neck Neck: Yes normal visual inspection Chest Chest palpation & inspection: normal inspection of the chest Resp Auscultation: clear to auscultation bilaterally Cardio Palpation: normal PMI Heart sounds: S1 normal heart sound present, S2 normal heart sound present, no gallops, no murmurs and no rubs GI Palpation (GI): Soft to palpation Back/Spine/Pelvis Other: unremarkable Skin General skin exam: no rashes or lesions noted Neuro General: patient oriented x3 Extrem General: Yes normal to inspection Psych Mental Status: mental status grossly normal Office Procedures EKG Details: EKG with underlying sinus rhythm at 72/Min; no ischemic changes; [place] [address]-[id number], Complete Assessment & Plan Assessment & Plan (1) PAF (paroxysmal atrial fibrillation): Code(s): I48.0 - Paroxysmal atrial fibrillation Category: Medical Plan: Isolated episode in setting of alcohol excess. She is on Diltiazem. Not on anticoagulation. No recurrence. (2) Hypertension: Code(s): I10 - Essential (primary) hypertension Category: Medical Qualifiers: Hypertension type: primary hypertension Qualified Code(s): I10 - Essential (primary) hypertension Plan: Stable on Losartan. Diastolic pressure is slightly high today but previously normal levels. Advised to monitor at home. (3) Mild dilation of ascending aorta: Code(s): I77.810 - Thoracic aortic ectasia Category: Medical Plan: Stable at 4.1 cm. Most recently, ascending aortic size 4.1 cm. This is similar to previous readings. We will follow this periodically. Reviewed report comments and images regarding ?coarctation, but do not believe it is the case as gradients were normal. Orders: Orders CA echo transthoracic complete 1 Year I77.810 - Thoracic aortic ectasia Coding Level of Care Code Est Pt Level 4 (32440) Diagnoses PAF (paroxysmal atrial fibrillation) I48.0 Primary hypertension I10 Hypertension type: primary hypertension Mild dilation of ascending aorta I77.810 CPT Codes EKG - CPT: 78474-[id number], Complete ([id number])
[2024-11-23 14:24] VITALS: BP 120/90; PULSE 72; BMI 34.5
--- OUTSIDE RECORDS SUMMARY | 2024-11-23 18:03 | XMS_ITS | Patient Health Record ---
Author Organization [facility] Address [address] [place] [address] Care Team Providers Care Rail Switchman Name Role Phone MEEK ROPER Unavailable [phone] Allergies No Known Allergies Reason For Referral [...] W/U Status Risk Notes Problem Irregular menstruation (64695517) Irregular menstruation, unspecified (N92.6) Active confirmed Problem Abnormal uterine bleeding ([id number]) Abnormal uterine and vaginal bleeding, unspecified (N93.9) [...] Insured Coverage Start Date Coverage End Date [facility] [address] [facility] [place] [id number] KRISTAL PENDLETON Self - patient is the insured Medical (General) History Surgical History Surgery Date(Month/Year) [place] Teeth Removed 06/2011 Hospitalization History Reason Date(Month/Year)
--- OUTSIDE RECORDS SUMMARY | 2024-11-23 18:03 | XMS_ITS | Clinical Summary ---
Author Organization [address] Address [address] [place] [address] Phone Care Team Providers Care Tape Fastener Machine Operator Name Role Phone Roya Newell NP Primary Care Provider +1- [phone] Allergies No known active allergies Social History [...] GENERIC COMMERCIAL GENERIC COMMERCIAL GENERIC Care Teams Tape Fastener Machine Operator Relationship Specialty Start Date End Date Roya Newell NP PCP - General 02/22/21
== END 2024-11-23 14:36 | disposition home or self-care (01) ==
LOC: HO.HCS 14:17
PROVIDERS: PCP Nurse Practitioner Family; Visit Provider Internal Medicine
DX: I48.0 Paroxysmal atrial fibrillation (principal); I10 Essential (primary) hypertension; I77.810 Thoracic aortic ectasia
CPT/HCPCS: 93010; 99214

== ENCOUNTER → 2024-11-23 14:16 | Outpatient (BNVA) | payer OTHER, SELFPAY | PROVIDERS: PCP Nurse Practitioner Family; Visit Provider Internal Medicine | DX: I48.0 Paroxysmal atrial fibrillation (principal); I10 Essential (primary) hypertension; I77.810 Thoracic aortic ectasia | CPT/HCPCS: 93005 ==